=== PATIENT | female | born 1955 | race Caucasian/White ===

== ENCOUNTER 2016-12-24 08:45 | Outpatient (CLI) | payer OTHER ==
--- NOTE | 2016-12-24 12:24 | Ultrasound Report ---
THYROID ULTRASOUND: 12/24/2016 CLINICAL INDICATION: Left upper thyroid region enlargement, history of nodules. COMPARISON: 11/27/2011, 07/19/2008. TECHNIQUE: Real-time scanning was performed with ambulatory services representative static images obtained. FINDINGS: The right lobe measures 4.8 x 1.6 x 1.3 cm, and the left lobe measures 5.6 x 1.6 x 1.4 cm. The isthmus measures 2 mm. There has been no significant interval change in bilateral thyroid nodu les, with the largest nodule, in the posterior left lobe, now measuring 1.6 x 1.2 x 1.0 cm (previousl y 1.9 x 1.5 x 1.1 cm). No new dominant suspicious nodule is identified. Mildly enlarged level II ce rvical nodes are noted bilaterally. IMPRESSION: MILD CERVICAL LYMPHADENOPATHY. NO SIGNIFICANT INTERVAL CHANGE IN MULTINODULAR THYROID. NO NEW DOMINANT SUSPICIOUS NODULE IS IDENTIFIED. JOB #: [id number] EXT JOB #:[id number]
== END 2016-12-24 08:46 | disposition home or self-care (01) ==
LOC: DI 08:45
PROVIDERS: ATTEND Physician Assistant
DX: E04.2 Nontoxic multinodular goiter (principal)
CPT/HCPCS: 76536

== ENCOUNTER 2017-01-20 13:31 | Outpatient (CLI) | payer OTHER ==
[2017-01-20 18:09] LABS: BASOPHILS % (AUTO) 0.7 %; EOSINOPHILS # (AUTO) 0.2 10^3/uL (0.0-0.7); EOSINOPHILS % (AUTO) 2.6 %; HCT - HEMATOCRIT 43.7 % (37.0-47.0); HGB - HEMOGLOBIN 14.3 g/dL (12.0-16.0); LYMPHOCYTES # (AUTO) 2.5 10^3/uL (1.5-3.5); LYMPHOCYTES % (AUTO) 40.2 %; MEAN CORPUSCULAR HEMOGLOBIN 29.3 pg (27.0-31.0); MEAN CORPUSCULAR HGB CONC 32.8 g/dL (32.0-36.0); MEAN CORPUSCULAR VOLUME 89.4 fL (81.0-99.0); MEAN PLATELET VOLUME 9.7 fL (7.9-10.8); MONOCYTES # (AUTO) 0.6 10^3/uL (0.0-1.0); MONOCYTES % (AUTO) 9.2 %; NEUTROPHILS % (AUTO) 47.3 %; RED BLOOD COUNT 4.89 10^6/uL (4.20-5.40); RED CELL DISTRIBUTION WIDTH 13.8 % (12.0-15.0); UNCORRECTED WHITE BLOOD COUNT 6.3 x10^3/uL; WHITE BLOOD COUNT 6.3 x10^3/uL (4.8-10.8)
[2017-01-20 18:30] LABS: ALBUMIN/GLOBULIN RATIO 1.4 (1.0-2.2); BILIRUBIN,TOTAL 0.4 mg/dL (0.2-1.0); BUN - BLOOD UREA NITROGEN 14 mg/dL (6-20); CALCIUM 9.3 mg/dL (8.5-10.3); CARBON DIOXIDE - CO2 30 mmol/L (21-32); CHLORIDE 106 mmol/L (101-111); CREATININE 0.4 mg/dL (0.4-1.0); GFR - MDRD 162 (>89); GLUCOSE 103 mg/dL (70-100); POTASSIUM 3.4 mmol/L (3.5-5.0); SODIUM 143 mmol/L (135-145); TOTAL PROTEIN 6.6 g/dL (6.7-8.2)
[2017-01-20 18:54] LABS: BILIRUBIN,DIRECT < 0.1 mg/dL (0.1-0.5)
[2017-01-20 18:55] LABS: THYROID STIMULATING HORMONE 0.32 uIU/mL (0.34-5.60)
== END 2017-01-20 13:32 | disposition home or self-care (01) ==
LOC: LAB.F 13:31
PROVIDERS: ATTEND Physician Assistant
DX: E78.5 Hyperlipidemia, unspecified (principal); E04.1 Nontoxic single thyroid nodule; Z79.899 Other long term (current) drug therapy
CPT/HCPCS: 36415; 80053; 80076; 82248; 84436; 84443; 85025

== ENCOUNTER 2017-01-26 09:34 | Outpatient (CLI) | payer OTHER ==
[2017-01-26] MEDS ORDERED: BARIUM SULFATE 454 GM TUBE PO ONE (10:04)
--- NOTE | 2017-01-26 12:31 | XRAY Report ---
MODIFIED BARIUM SWALLOW: 01/26/2017 CLINICAL INDICATION: Dysphagia. FINDINGS: Various consistencies of barium were prepared and administered in conjunction with Speech Pathology. There was no evidence of penetration or aspiration with any administered consistency. Pl ease also refer to full report from Speech Pathology for further findings. IMPRESSION: NO EVIDENCE OF PENETRATION OR ASPIRATION. FLUOROSCOPY TIME: 46 seconds; 1 spot image obtained (cinefluoroscopy recorded). JOB #: [id number] EXT JOB #:[id number]
== END 2017-01-26 09:35 | disposition home or self-care (01) ==
LOC: DI 09:34
PROVIDERS: ATTEND Physician Assistant
DX: R13.10 Dysphagia, unspecified (principal)
CPT/HCPCS: 74230

== ENCOUNTER 2017-03-04 15:19 | Outpatient (CLI) | payer OTHER ==
[2017-03-04 17:59] LABS: BILIRUBIN,URINE NEGATIVE (NEGATIVE)
[2017-03-04 18:05] LABS: UR CULTURE IF IND NOT INDICATED; WBC,URINE 0-3 /HPF (0-5)
== END 2017-03-04 15:20 ==
LOC: LAB.R 15:19
PROVIDERS: ATTEND Physician Assistant Medical
DX: N39.0 Urinary tract infection, site not specified (principal)
CPT/HCPCS: 81001; 87086

== ENCOUNTER 2017-05-01 14:48 | Outpatient (CLI) | payer OTHER ==
[2017-05-01 18:34] LABS: ALBUMIN/GLOBULIN RATIO 1.6 (1.0-2.2); BILIRUBIN,TOTAL 0.5 mg/dL (0.2-1.0); CALCIUM 9.4 mg/dL (8.5-10.3); CREATININE 0.6 mg/dL (0.4-1.0); POTASSIUM 3.4 mmol/L (3.5-5.0)
== END 2017-05-01 14:49 | disposition home or self-care (01) ==
LOC: LAB.F 14:48
PROVIDERS: ATTEND Physician Assistant Medical
DX: N39.0 Urinary tract infection, site not specified (principal); R90.89 Other abnormal findings on diagnostic imaging of central nervous system; R41.3 Other amnesia
CPT/HCPCS: 36415; 80053

== ENCOUNTER 2017-05-06 08:48 | Outpatient (CLI) | payer OTHER ==
[~2017-05-06 08:48] MED LIST: GADOBUTROL 10 MMOL/10 ML VIAL ONE
[2017-05-06] MEDS ORDERED: GADOBUTROL 10 MMOL/10 ML VIAL IVP ONE (09:30)
--- NOTE | 2017-05-06 13:56 | MRI Report ---
EXAM: MRI BRAIN WITHOUT AND WITH CONTRAST EXAM DATE: 05/06/2017 09:41 AM. CLINICAL HISTORY: 61-year-old with worsening memory deficits COMPARISON: MR brain 04/12/2012. TECHNIQUE: Multiplanar, multisequence T1-weighted and fluid-sensitive MR sequences of the brain were performed. Sequences optimized for routine evaluation. Other: None. Without and with IV Contrast: 10 cc GADAVIST. FINDINGS: Brain Volume: Normal for age. Parenchyma/Dura: No acute hemorrhage, mass, or acute infarct. Moderate bilateral areas of T2/FLAIR si gnal hyperintensity seen that appear slightly progressed from 04/12/2012. 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 No abnormal postcontrast enhancement. Pituitary: The sella appears normal. Pituitary appears normal. No suprasellar mass or mass effect in the overlying optic structures. Ventricles/Cisterns: No abnormal extra axial fluid collection/mass seen. Ventricles and sulci are pro minent but appropriate for the extensive volume loss. Cisterns are patent. No abnormal postcontrast e nhancement. Sinuses: Minimal mucosal thickening in the ethmoid air cells. Small right maxillary mucosal retention cyst versus polyp. Mastoid air cells and middle ear cavities are clear. Orbits: Normal. Vasculature: Visualized major intracranial flow voids are maintained. Dural sinuses are patent. Bones: Calvarium appears normal. The visualized craniocervical junction appears normal. Other: None. IMPRESSION: 1. No acute infarct, intracranial hemorrhage, mass, hydrocephalus, or abnormal postcontrast enhanceme nt. 2. Moderate white matter changes including old chronic lacunar infarcts of the left cerebellum and le ft putamen that appear slightly progressed from 04/12/2012. Findings are most consistent with sequela of chronic small vessel ischemic disease. [facility] Referring Provider Line: [phone] SITE ID: [id number]
== END 2017-05-06 08:49 | disposition home or self-care (01) ==
LOC: DI 08:48
PROVIDERS: ATTEND Physician Assistant Medical
DX: R90.89 Other abnormal findings on diagnostic imaging of central nervous system (principal)
CPT/HCPCS: 70553; A9585

== ENCOUNTER 2017-06-12 17:41 | Outpatient (CLI) | payer OTHER ==
--- NOTE | 2017-06-13 14:22 | XRAY Report ---
EXAM: LEFT HIP AND PELVIS RADIOGRAPHY EXAM DATE: 06/12/2017 06:03 PM. HISTORY: HIP JOINT PAIN, LEFT. COMPARISONS: 07/14/2015. TECHNIQUE: 1 view of the pelvis and 1 view of the hip. FINDINGS: Bones: Old, healed proximal left femoral fracture is stable. Changes of previous right femoral roddin g are stable. Fusion hardware is seen in the lower lumbar spine. There is no evidence of acute fractu re. Joints: Mild bilateral hip osteoarthritis. Soft Tissues: Normal. No soft tissue swelling. IMPRESSION: Stable post traumatic changes. No evidence of acute fracture. Mild osteoarthritis. [facility] Referring Provider Line: [phone] SITE ID: [id number]
== END 2017-06-12 17:42 | disposition home or self-care (01) ==
LOC: DI 17:41
PROVIDERS: ATTEND Physician Assistant Medical
DX: M16.0 Bilateral primary osteoarthritis of hip (principal); Z98.1 Arthrodesis status

== ENCOUNTER 2017-07-11 12:58 | Outpatient (CLI) | payer OTHER ==
[~2017-07-11 12:58] MED LIST changes: -GADOBUTROL 10 MMOL/10 ML VIAL ONE; +GADOBUTROL 15 MMOL/15 ML VIAL ONE
[2017-07-11] MEDS ORDERED: GADOBUTROL 15 MMOL/15 ML VIAL IVP ONE (14:01)
--- NOTE | 2017-07-13 01:16 | MRI Report ---
EXAM: MRI SOFT TISSUE NECK WITHOUT AND WITH CONTRAST EXAM DATE: 07/11/2017 02:21 PM. CLINICAL HISTORY: C1 synovial cyst. COMPARISON: Cervical spine MRIs from 07/05/2013 and 04/12/2012. TECHNIQUE: Multiplanar, multisequence T1-weighted and fluid-sensitive MR sequences of the neck soft t issues were performed. Other: None. IV Contrast: Without and with 11 mL of Gadavist. FINDINGS: Skull Base: Visualized intracranial contents and orbits are unremarkable. The skull base is intact. Pharynx and Oral Cavity: The pharyngeal mucosa is unremarkable. The infratemporal fossa, parapharynge al spaces, and retropharyngeal space are unremarkable. The airway is patent. The base of the tongue is symmetric. No mass lesion. The floor of the mouth is symmetric and unremark able. Larynx: The larynx and supraglottic airway are patent without mass lesion. The vocal cords are symme tric. The visualized trachea is unremarkable. Parotid and Submandibular Glands: Symmetric and unremarkable. Lymph Nodes and Soft Tissues: A 9 mm enhancing nodule is noted adjacent to the posterior aspect of t he left thyroid lobe and lateral to the esophagus (image 9, series 1001), stable in size compared to the prior MRIs. No enlarged cervical, supraclavicular fossa, or visualized superior mediastinal lymph nodes. The previously demonstrated prevertebral synovial cyst to the right of midline at C1 has comp letely resolved. Vasculature: Patent. Bones: No abnormal bone marrow edema is seen in the cervical spine. Multilevel degenerative changes a re again demonstrated, most pronounced in the mid cervical spine. Other: The upper chest is unremarkable. IMPRESSION: 1. Interval resolution of the C1 synovial cyst compared to the prior cervical spine MRIs from 2011 an 2012. 2. No acute abnormality identified in the remaining soft tissues of the neck. [facility] Referring Provider Line: [phone] SITE ID: [id number]
== END 2017-07-11 12:59 | disposition home or self-care (01) ==
LOC: DI 12:58
PROVIDERS: ATTEND Psychiatry & Neurology Neurology
DX: R22.1 Localized swelling, mass and lump, neck (principal)
CPT/HCPCS: 70543; A9585

== ENCOUNTER 2017-08-08 14:33 | Outpatient (CLI) | payer OTHER | END 2017-08-08 14:34 | disposition home or self-care (01) | LOC: LAB 14:33 | PROVIDERS: ATTEND Surgery | DX: I10 Essential (primary) hypertension (principal); M54.9 Dorsalgia, unspecified; E78.5 Hyperlipidemia, unspecified; E66.01 Morbid (severe) obesity due to excess calories; G47.30 Sleep apnea, unspecified | CPT/HCPCS: 36415; 80053; 80061; 81599; 82306; 82607; 82728; 82746; 83036; 83540; 83721; 84425; 84443; 84466; 84590; 84630; 85025 ==

== ENCOUNTER 2017-08-11 08:00 | Outpatient (CLI) | payer OTHER ==
[2017-08-11 07:32] LABS: BASOPHILS % (AUTO) 0.5 %; EOSINOPHILS # (AUTO) 0.1 10^3/uL (0.0-0.7); EOSINOPHILS % (AUTO) 1.8 %; HGB - HEMOGLOBIN 13.6 g/dL (12.0-16.0); LYMPHOCYTES % (AUTO) 38.3 %; MEAN CORPUSCULAR HEMOGLOBIN 29.4 pg (27.0-31.0); MEAN CORPUSCULAR HGB CONC 32.8 g/dL (32.0-36.0); MEAN CORPUSCULAR VOLUME 89.6 fL (81.0-99.0); MEAN PLATELET VOLUME 8.7 fL (7.9-10.8); MONOCYTES # (AUTO) 0.5 10^3/uL (0.0-1.0); MONOCYTES % (AUTO) 9.2 %; NEUTROPHILS # (AUTO) 2.6 10^3/uL (1.5-6.6); NEUTROPHILS % (AUTO) 50.2 %; PLT - PLATELET COUNT 180 10^3/uL (130-450); RED BLOOD COUNT 4.63 10^6/uL (4.20-5.40); RED CELL DISTRIBUTION WIDTH 13.4 % (12.0-15.0); WHITE BLOOD COUNT 5.2 x10^3/uL (4.8-10.8)
[2017-08-11 07:52] LABS: % IRON SATURATION 28 % (20-50); ALBUMIN 3.8 g/dL (3.2-5.5); ALBUMIN/GLOBULIN RATIO 1.4 (1.0-2.2); ALKALINE PHOSPHATASE 57 IU/L (42-121); ALT ALANINE AMINOTRANSFERASE 24 IU/L (10-60); AST ASPARTATE AMINOTRANSFERASE 23 IU/L (10-42); BILIRUBIN,TOTAL 0.6 mg/dL (0.2-1.0); BUN - BLOOD UREA NITROGEN 11 mg/dL (6-20); CALCIUM 8.8 mg/dL (8.5-10.3); CARBON DIOXIDE - CO2 25 mmol/L (21-32); CHLORIDE 96 mmol/L (101-111); CHOL/HDL RATIO 4.9 (<4.4); CHOLESTEROL 254 mg/dL; CREATININE 0.6 mg/dL (0.4-1.0); GFR - MDRD 101 (>89); GLUCOSE 110 mg/dL (70-100); HDL CHOLESTEROL 52 mg/dL; IRON 91 ug/dL (28-170); LDL CHOLESTEROL,CALCULATED 178 mg/dL; LDL/HDL RATIO 3.4 (<4.4); SODIUM 132 mmol/L (135-145); TOTAL IRON BINDING CAPACITY 321 ug/dL (250-450); TOTAL PROTEIN 6.6 g/dL (6.7-8.2); TRANSFERRIN 229 mg/dL (192-382); VLDL CHOLESTEROL 24 mg/dL
[2017-08-11 07:54] LABS: HB2 TOTAL 14.6 g/dL; HEMOGLOBIN A1C 0.55 g/dL; HEMOGLOBIN A1C % 5.6 % (4.6-6.2)
[2017-08-11 08:02] LABS: THYROID STIMULATING HORMONE 0.67 uIU/mL (0.34-5.60)
[2017-08-11 08:09] LABS: FERRITIN 139.4 ng/mL (11.0-306.8)
[2017-08-14 14:41] LABS: VITAMIN A (RETINOL) 46 mcg/dL (38-98)
[2017-08-14 18:02] LABS: ZINC, PLASMA 62 mcg/dL (60-130)
== END 2017-08-11 08:01 | disposition home or self-care (01) ==
LOC: LAB 08:00
PROVIDERS: ATTEND Surgery
DX: I10 Essential (primary) hypertension (principal); M54.9 Dorsalgia, unspecified; E78.5 Hyperlipidemia, unspecified; E66.01 Morbid (severe) obesity due to excess calories; G47.30 Sleep apnea, unspecified
CPT/HCPCS: 36415; 80053; 80061; 81599; 82306; 82607; 82728; 82746; 83036; 83525; 83540; 83721; 84425; 84443; 84466; 84590; 84630; 84681; 85025

== ENCOUNTER 2017-11-05 08:48 | Outpatient (CLI) | payer OTHER ==
[2017-11-05 18:20] VITALS: BP 122/76
--- NOTE | 2017-11-06 09:56 | CARDIAC PROCEDURE NOTE ---
DATE OF SERVICE: 11/05/2017 Physician: NIKITA Cason PRIMARY CARE PHYSICIAN: Enedina Andre PA-C. PROCEDURE: Stress echocardiogram. PROCEDURE SYMPTOMS 1. Dyspnea on exertion. 2. Abnormal ECG. CARDIAC RISK FACTORS Include: 1. Age. 2. Hypertension. PREVIOUS CARDIAC PROCEDURES: None. CLINICAL HISTORY: A 62-year-old sedentary female without known coronary artery disease. She is preop bariatric surgery. INITIAL RESTING VITAL SIGNS: BP 124/72, heart rate 76, height 60 inches, weight 225 pounds, BMI 43.9. PROCEDURE AND FINDINGS: The patient's identity and date were verified, consent signed. After resting echocardiogram images were obtained, the patient performed treadmill exercise using a Sharif protocol, completing 5 minutes 46 seconds and an estimated workload of 7.05 metabolic equivalents. Maximal blood pressure was 172/80 mmHg with a heart rate of 160 beats per minute or 101% of maximum predicted heart rate for age. The blood pressure response to exercise was normal. The patient stopped due to achieving 101% and she was tiring. The resting ECG demonstrated normal sinus rhythm with low voltage in the chest leads. There was less than 0.5 ST-segment depression and no T-wave abnormalities. She had occasional PVCs at rest, during exercise, and in recovery. PVCs were of 2 morphologies and included 1 couplet and a short bigeminal rhythm. The summary report from the treadmill records 90 PVCs through the test. Our nurse will check through to see if that is accurate. FINAL IMPRESSIONS 1. Quality of tracings is good. 2. Achieved predicted time of 5 minutes, 30 seconds for sedentary female. 3. No ECG signs of ischemia, testing complete, awaiting Echocardiographic report. 4. Negative stress test clinically for angina. 5. Multiple PVC ectopy. cc: Francheska Callahan MD TD: 11/05/2017 20:09 MTDReid
--- NOTE | 2017-11-12 19:54 | CARDIAC PROCEDURE NOTE ---
DATE OF SERVICE: 11/05/2017 Physician: Natalya Diamond, [facility] ADDENDUM: Review of stress test revealed probability of around 90 PVCs total, most of which occurred prior to the test and in recovery. She had only about 6 PVCs during her 6+ minutes of exercise. TD: 11/12/2017 19:53
== END 2017-11-05 08:49 | disposition home or self-care (01) ==
LOC: DI 08:48
PROVIDERS: ATTEND Physician Assistant Medical
DX: R94.31 Abnormal electrocardiogram [ECG] [EKG] (principal); I10 Essential (primary) hypertension; R06.00 Dyspnea, unspecified; I49.3 Ventricular premature depolarization
CPT/HCPCS: 93351

== ENCOUNTER 2017-11-14 13:30 | Outpatient (CLI) | payer OTHER | END 2017-11-14 13:31 | disposition home or self-care (01) | LOC: RT 13:30 | PROVIDERS: ATTEND Physician Assistant Medical | DX: R06.2 Wheezing (principal) | CPT/HCPCS: 94010; 94729 ==

== ENCOUNTER 2017-11-30 10:25 | Outpatient (CLI) | payer OTHER | END 2017-11-30 10:26 | disposition home or self-care (01) | LOC: SC 10:25 | PROVIDERS: ATTEND Internal Medicine Pulmonary Disease | DX: G47.33 Obstructive sleep apnea (adult) (pediatric) (principal) | CPT/HCPCS: 99203; 99212 ==

== ENCOUNTER 2017-12-14 17:27 | Outpatient (CLI) | payer OTHER ==
--- NOTE | 2017-12-15 10:56 | XRAY Report ---
TWO VIEW RIGHT KNEE: 12/14/2017 CLINICAL INDICATION: Fall, pain. FINDINGS: Frontal and lateral views of the right knee demonstrate a right knee medial hemiarthroplasty in place. Mild osteoarthritis is seen. No acute fracture or dislocation is identified. No effusion is present. Old IM phyllis track is incidentally noted. IMPRESSION: RIGHT KNEE MEDIAL HEMIARTHROPLASTY. MILD OSTEOARTHRITIS. NO EVIDENCE OF ACUTE FRACTURE. TD: 12/15/2017 10:33
== END 2017-12-14 17:28 | disposition home or self-care (01) ==
LOC: DI 17:27
PROVIDERS: ATTEND Internal Medicine
DX: M17.11 Unilateral primary osteoarthritis, right knee (principal); Z98.1 Arthrodesis status

== ENCOUNTER 2018-02-21 12:16 | Outpatient (CLI) | payer OTHER ==
[2018-02-21 12:36] LABS: BASOPHILS % (AUTO) 0.7 %; EOSINOPHILS # (AUTO) 0.2 10^3/uL (0.0-0.7); EOSINOPHILS % (AUTO) 2.5 %; HGB - HEMOGLOBIN 14.8 g/dL (12.0-16.0); LYMPHOCYTES # (AUTO) 2.7 10^3/uL (1.5-3.5); LYMPHOCYTES % (AUTO) 39.8 %; MEAN CORPUSCULAR HEMOGLOBIN 30.3 pg (27.0-31.0); MEAN CORPUSCULAR HGB CONC 33.3 g/dL (32.0-36.0); MEAN CORPUSCULAR VOLUME 91.1 fL (81.0-99.0); MEAN PLATELET VOLUME 9.2 fL (7.9-10.8); MONOCYTES # (AUTO) 0.6 10^3/uL (0.0-1.0); MONOCYTES % (AUTO) 9.2 %; NEUTROPHILS # (AUTO) 3.2 10^3/uL (1.5-6.6); NEUTROPHILS % (AUTO) 47.8 %; PLT - PLATELET COUNT 192 10^3/uL (130-450); RED BLOOD COUNT 4.87 10^6/uL (4.20-5.40); RED CELL DISTRIBUTION WIDTH 12.9 % (12.0-15.0); WHITE BLOOD COUNT 6.8 x10^3/uL (4.8-10.8)
[2018-02-21 12:44] LABS: ALBUMIN 3.9 g/dL (3.2-5.5); ALBUMIN/GLOBULIN RATIO 1.2 (1.0-2.2); CALCIUM 9.2 mg/dL (8.5-10.3); CREATININE 0.5 mg/dL (0.4-1.0); TOTAL PROTEIN 7.1 g/dL (6.7-8.2)
== END 2018-02-21 12:17 | disposition home or self-care (01) ==
LOC: LAB 12:16
PROVIDERS: ATTEND Physician Assistant Medical
DX: M79.1 Myalgia (principal); M25.50 Pain in unspecified joint; I10 Essential (primary) hypertension
CPT/HCPCS: 36415; 80053; 83735; 85025

== ENCOUNTER 2018-02-24 14:22 | Outpatient (CLI) | payer OTHER | END 2018-02-24 14:23 | disposition home or self-care (01) | LOC: SC 14:22 | PROVIDERS: ATTEND Nurse Practitioner Family | DX: G47.33 Obstructive sleep apnea (adult) (pediatric) (principal) | CPT/HCPCS: 99212; 99214 ==

== ENCOUNTER 2018-04-14 09:33 | Outpatient (CLI) | payer OTHER ==
[2018-04-14 11:17] LABS: HGB - HEMOGLOBIN 15.1 g/dL (12.0-16.0); MEAN CORPUSCULAR HEMOGLOBIN 30.3 pg (27.0-31.0); MEAN CORPUSCULAR HGB CONC 34.1 g/dL (32.0-36.0); MEAN PLATELET VOLUME 9.3 fL (7.9-10.8); RED BLOOD COUNT 4.99 10^6/uL (4.20-5.40); RED CELL DISTRIBUTION WIDTH 12.8 % (12.0-15.0)
[2018-04-14 11:26] LABS: ALBUMIN 4.1 g/dL (3.2-5.5); ALBUMIN/GLOBULIN RATIO 1.3 (1.0-2.2); BILIRUBIN,TOTAL 0.9 mg/dL (0.2-1.0); CALCIUM 9.6 mg/dL (8.5-10.3); CREATININE 0.6 mg/dL (0.4-1.0); TOTAL PROTEIN 7.3 g/dL (6.7-8.2)
== END 2018-04-14 09:34 | disposition home or self-care (01) ==
LOC: LAB.F 09:33
PROVIDERS: ATTEND Surgery
DX: G47.30 Sleep apnea, unspecified (principal); I10 Essential (primary) hypertension; E78.5 Hyperlipidemia, unspecified
CPT/HCPCS: 36415; 80053; 85027

== ENCOUNTER 2018-05-19 08:49 | Outpatient (CLI) | payer OTHER | END 2018-05-19 08:50 | disposition home or self-care (01) | LOC: SC 08:49 | PROVIDERS: ATTEND Nurse Practitioner Family | DX: G47.33 Obstructive sleep apnea (adult) (pediatric) (principal) | CPT/HCPCS: 99212; 99214 ==

== ENCOUNTER 2018-06-03 08:18 | Outpatient (CLI) | payer OTHER ==
[2018-06-03 10:34] LABS: BASOPHILS % (AUTO) 0.4 %; EOSINOPHILS # (AUTO) 0.1 10^3/uL (0.0-0.7); EOSINOPHILS % (AUTO) 1.1 %; HGB - HEMOGLOBIN 14.9 g/dL (12.0-16.0); LYMPHOCYTES % (AUTO) 36.5 %; MEAN CORPUSCULAR HEMOGLOBIN 30.1 pg (27.0-31.0); MEAN CORPUSCULAR VOLUME 88.4 fL (81.0-99.0); MEAN PLATELET VOLUME 9.6 fL (7.9-10.8); MONOCYTES # (AUTO) 0.5 10^3/uL (0.0-1.0); MONOCYTES % (AUTO) 8.9 %; NEUTROPHILS # (AUTO) 2.9 10^3/uL (1.5-6.6); NEUTROPHILS % (AUTO) 53.1 %; PLT - PLATELET COUNT 210 10^3/uL (130-450); RED BLOOD COUNT 4.94 10^6/uL (4.20-5.40); WHITE BLOOD COUNT 5.5 x10^3/uL (4.8-10.8)
[2018-06-03 10:55] LABS: ALBUMIN 4.3 g/dL (3.2-5.5); ALBUMIN/GLOBULIN RATIO 1.5 (1.0-2.2); BILIRUBIN,TOTAL 0.8 mg/dL (0.2-1.0); CALCIUM 9.3 mg/dL (8.5-10.3); CREATININE 0.5 mg/dL (0.4-1.0); TOTAL PROTEIN 7.1 g/dL (6.7-8.2)
== END 2018-06-03 08:19 | disposition home or self-care (01) ==
LOC: LAB.F 08:18
PROVIDERS: ATTEND Surgery
DX: K22.70 Barrett's esophagus without dysplasia (principal)
CPT/HCPCS: 36415; 80053; 85025

== ENCOUNTER 2018-06-22 08:50 | Outpatient (CLI) | payer OTHER | END 2018-06-22 08:51 | disposition home or self-care (01) | LOC: SC 08:50 | PROVIDERS: ATTEND Nurse Practitioner Family | DX: G47.33 Obstructive sleep apnea (adult) (pediatric) (principal) | CPT/HCPCS: 99212; 99214 ==

== ENCOUNTER 2018-07-26 17:20 | Outpatient (CLI) | payer OTHER | END 2018-07-26 17:21 | disposition critical access hospital (66) | LOC: EMS 17:20 | PROVIDERS: ATTEND Surgery | DX: R07.9 Chest pain, unspecified (principal) | CPT/HCPCS: A0425; A0427 ==

== ENCOUNTER 2018-07-26 17:46 | Emergency (ER) | payer OTHER ==
[2018-07-26] MEDS ORDERED: IOVERSOL 320 100 ML VIAL IVP ONE (17:47)
[2018-07-26 18:29] LABS: BASOPHILS % (AUTO) 0.5 %; EOSINOPHILS % (AUTO) 0.6 %; LYMPHOCYTES # (AUTO) 1.9 10^3/uL (1.5-3.5); LYMPHOCYTES % (AUTO) 35.3 %; MEAN CORPUSCULAR HEMOGLOBIN 29.9 pg (27.0-31.0); MEAN CORPUSCULAR HGB CONC 33.4 g/dL (32.0-36.0); MEAN CORPUSCULAR VOLUME 89.5 fL (81.0-99.0); MEAN PLATELET VOLUME 9.1 fL (7.9-10.8); MONOCYTES # (AUTO) 0.4 10^3/uL (0.0-1.0); MONOCYTES % (AUTO) 8.3 %; NEUTROPHILS % (AUTO) 55.3 %; PLT - PLATELET COUNT 177 10^3/uL (130-450); RED BLOOD COUNT 5.36 10^6/uL (4.20-5.40); RED CELL DISTRIBUTION WIDTH 13.2 % (12.0-15.0); WHITE BLOOD COUNT 5.4 x10^3/uL (4.8-10.8)
[2018-07-26 18:42] LABS: ALBUMIN 4.4 g/dL (3.2-5.5); ALBUMIN/GLOBULIN RATIO 1.6 (1.0-2.2); BILIRUBIN,TOTAL 0.8 mg/dL (0.2-1.0); CALCIUM 9.5 mg/dL (8.5-10.3); CREATININE 0.6 mg/dL (0.4-1.0); TOTAL PROTEIN 7.2 g/dL (6.7-8.2)
[2018-07-26] MEDS ORDERED: METOPROLOL 5 MG/5 ML VIAL IVP STA (18:43)
[2018-07-26] MEDS ORDERED: POTASSIUM BICARB 25 MEQ TABLET PO STA (18:44)
--- NOTE | 2018-07-26 18:45 | XRAY Report ---
Reason: chest pain Procedure Date: 07/26/2018 Accession Number: [id number] / [id number] Procedure: XR - Chest 1 View X-Ray CPT Code: 33698 FULL RESULT: EXAM: CHEST RADIOGRAPHY. EXAM DATE: 07/26/2018 06:21 PM. CLINICAL HISTORY: Chest pain. COMPARISON: Chest 2 view PA/lateral 03/27/2014 9:11 AM. TECHNIQUE: 1 view. FINDINGS: Lungs/Pleura: No focal opacities evident. No pleural effusion. No pneumothorax. Mediastinum: Within exam limitations, the cardiomediastinal contour is normal. Other: None. IMPRESSION: Normal single view chest. [facility]
--- NOTE | 2018-07-26 18:46 | ED Physician Documentation ---
PD HPI CHEST PAIN - Stated complaint Stated Complaint: CP - Chief complaint Chief Complaint: Cardiac - History obtained from History obtained from: Patient, Family, EMS - History of Present Illness Timing - onset: Today (62-year-old woman had a gastric sleeve earlier this month. She was feeling nauseous today and that is new and then around 415 developed sharp anterior chest pain radiating to the neck without back pain and a brief headache. She was in pain for about 15 minutes and it resolved with the administration of nitroglycerin. Of note she had a negative stress echocardiogram in October of this year. She has no history of heart problems. She denies pedal edema or calf pain.) Review of Systems Constitutional: reports: Sweats. denies: Fever, Chills Nose: denies: Rhinorrhea / runny nose, Congestion Throat: denies: Sore throat Cardiac: reports: Chest pain / pressure. 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 HEENT: Tonsil/Adenoidectomy Derm: Skin grafts - Present Medications Home Medications: Ambulatory Orders Medication Instructions Recorded Confirmed Cholecalciferol (Vitamin D3) 2,000 units PO DAILY 10/17/13 01/08/15 [Vitamin D] Cyanocobalamin (Vitamin B-12) 2,500 mcg PO DAILY 10/17/13 01/08/15 [Vitamin B-12] Folic Acid 400 mcg PO DAILY 10/17/13 01/08/15 Krill/Om3/Dha/Epa/Om6/Lip/Astx 1 cap PO DAILY 10/17/13 01/08/15 [Krill Oil 1,000 mg Softgel] Kangenukone 1 tab PO DAILY 01/12/14 01/08/15 Lactobacillus Acidophilus 1 cap PO DAILY 01/12/14 01/08/15 [Probiotic] Magnesium 400 mg PO DAILY 01/12/14 01/08/15 PARoxetine [Paxil] 5 mg PO DAILY 01/12/14 01/08/15 Vitamin E 400 units PO DAILY 01/12/14 01/08/15 Biotin [Jayesh Biotin] 5,000 mcg ORAL DAILY 01/08/15 01/08/15 Vit E/Vit C/Magnesium/Zinc [Ecee 1 tab ORAL DAILY 01/08/15 01/08/15 Plus Tablet] Metoprolol Succinate 25 mg PO DAILY #30 tab.er.24h 07/26/18 Potassium Bicarbonate 25 meq PO DAILY #15 tablet 07/26/18 [K-Effervescent] - Allergies Allergies/Adverse Reactions: Allergies Allergy/AdvReac Type Severity Reaction Status Date / Time vancomycin Allergy Severe Jimenez-Johnsons Verified 03/27/14 08:29 Syndrome - Social History Does the pt smoke?: No Smoking Status: Never smoker Does the pt drink ETOH?: Yes Does the pt have substance abuse?: No - POLST Patient has POLST: No PD ED PE NORMAL - Vitals Vital signs reviewed: Yes - General General: Alert and oriented X 3, No acute distress - HEENT HEENT: PERRL, EOMI - Neck Neck: Supple, no meningeal sign, No bony TTP - Cardiac Cardiac: RRR, No murmur - Respiratory Respiratory: No respiratory distress, Clear bilaterally - Abdomen Abdomen: Normal bowel sounds, Soft, Non tender - Back Back: No CVA TTP, No spinal TTP - Derm Derm: Normal color, Warm and dry - Extremities Extremities: Other (There is asymmetry with the left calf being larger than the right but that is due to a remote trauma with hardware in place.) - Neuro Neuro: Alert and oriented X 3, Normal speech - Psych Psych: Normal mood, Normal affect Results - Vitals Vitals: Vital Signs - 24 hr 07/26/18 07/26/18 07/26/18 17:57 18:16 18:30 Temperature 35.8 C L Heart Rate 86 77 92 Respiratory 14 19 20 Rate Blood Pressure 175/11 H 151/86 H 154/89 H O2 Saturation 100 97 97 07/26/18 07/26/18 07/26/18 18:55 19:43 21:04 Temperature Heart Rate 78 73 72 Respiratory 15 16 22 Rate Blood Pressure 142/99 H 142/120 H 110/98 H O2 Saturation 95 96 93 Oxygen O2 Source Room air - EKG (time done) 1755 Rate: Rate (enter#) (93) Rhythm: NSR (With frequent PVCs) [place]: Normal Intervals: Normal [place] QRS: LVH Ischemia: Normal ST segments Computer interpretation: Agree with computer - Labs Labs: Laboratory Tests 07/26/18 07/26/18 07/26/18 18:23 18:23 18:23 WBC 5.4 RBC 5.36 Hgb 16.0 Hct 48.0 H MCV 89.5 MCH 29.9 MCHC 33.4 RDW 13.2 Plt Count 177 MPV 9.1 Neut # (Auto) 3.0 Lymph # (Auto) 1.9 [place] # (Auto) 0.4 Eos # (Auto) 0.0 Baso # (Auto) 0.0 Absolute Nucleated RBC 0.00 Nucleated RBC % 0.1 Sodium 136 Potassium 2.9 L Chloride 98 L Carbon Dioxide 29 Anion Gap 9.0 BUN 11 Creatinine 0.6 Estimated GFR (MDRD) 101 Glucose 115 H Calcium 9.5 Total Bilirubin 0.8 AST 24 ALT 30 Alkaline Phosphatase 78 Troponin I < 0.04 Total Protein 7.2 Albumin 4.4 Globulin 2.8 Albumin/Globulin Ratio 1.6 Lipase 43 07/26/18 20:07 WBC RBC Hgb Hct MCV MCH MCHC RDW Plt Count MPV Neut # (Auto) Lymph # (Auto) [place] # (Auto) Eos # (Auto) Baso # (Auto) Absolute Nucleated RBC Nucleated RBC % Sodium Potassium Chloride Carbon Dioxide Anion Gap BUN Creatinine Estimated GFR (MDRD) Glucose Calcium Total Bilirubin AST ALT Alkaline Phosphatase Troponin I < 0.04 Total Protein Albumin Globulin Albumin/Globulin Ratio Lipase - Rads (name of study) 1v chest Radiology: EMP read contemporaneously (NAD) PD MEDICAL DECISION MAKING - ED course ED course: 62-year-old woman with brief but concerning chest pain episode prior to arrival. Pain-free on arrival but with a lot of PVCs but otherwise not acutely ischemic EKG. Serial troponins were done in the department without any bump. PVCs resolved after a small dose of Lopressor and potassium supplementation orally. Departure - Departure Disposition: 01 Home, Self Care Clinical Impression: PVCs (premature ventricular contractions), Hypokalemia Chest pain Qualifiers: Chest pain type: unspecified Qualified Code(s): R07.9 - Chest pain, unspecified Condition: Good Record reviewed to determine appropriate education?: Yes Instructions: Angina Dc Prescriptions: Metoprolol Succinate 25 mg PO DAILY #30 tab.er.24h Potassium Bicarbonate [K-Effervescent] 25 meq PO DAILY #15 tablet Comments: Follow-up with LITZY Andre in a few days. Recommend rechecking potassium and consideration for repeat stress test. Return by ambulance for repeat chest pain episode.
--- NOTE | 2018-07-26 19:52 | CT Report ---
Reason: Post op chest pain Procedure Date: 07/26/2018 Accession Number: [id number] / [id number] Procedure: CT - Chest Angio (PE) CPT Code: FULL RESULT: EXAM: CT ANGIOGRAM CHEST EXAM DATE: 07/26/2018 07:34 PM. CLINICAL HISTORY: Post op chest pain. COMPARISON: None. TECHNIQUE: Routine helical imaging was performed through the chest in the pulmonary arterial phase. IV Contrast: Optiray 320 80mL. Reconstructions: Coronal 3-D MIP reconstructions.Sagittal and coronal. In accordance with CT protocol optimization, one or more of the following dose reduction techniques were utilized for this exam: automated exposure control, adjustment of mA and/or KV based on patient size, or use of iterative reconstructive technique. FINDINGS: Pulmonary Arteries: Diagnostic quality: Adequate through the segmental arteries. No evidence for acute or chronic pulmonary emboli. RV/LV is within normal limits. There is no interventricular septal bowing. There is no reflux of contrast material in the IVC. Lungs/Pleura: No consolidation, nodules, or edema. No effusions or pneumothorax. Mediastinum: Normal. No cardiac enlargement or adenopathy. Thoracic Aorta: Unremarkable. Upper Abdomen: There is a 2.8 cm right renal parapelvic cyst. A 1.5 cm cyst is noted at the hepatic dome. Status post gastric sleeve procedure. Other: None. IMPRESSION: Normal pulmonary CT angiogram. No pulmonary emboli. [facility]
[2018-07-26 21:04] VITALS: BP 110/98
[2018-07-27] MEDS ORDERED: IOVERSOL 320 100 ML VIAL IVP ONE (01:22)
== END 2018-07-26 21:21 | disposition home or self-care (01) ==
LOC: EDUNIT# → ED 17:46
DX: I49.3 Ventricular premature depolarization (principal); R07.9 Chest pain, unspecified; E87.6 Hypokalemia; I10 Essential (primary) hypertension; Z98.84 Bariatric surgery status
CPT/HCPCS: 36415; 71045; 71275; 80053; 83690; 84484; 85025; 93005; 96374; 99284; A9270; Q9967

== ENCOUNTER 2018-08-02 07:49 | Outpatient (CLI) | payer BC ==
[2018-08-02 13:18] LABS: ALBUMIN/GLOBULIN RATIO 1.3 (1.0-2.2); BILIRUBIN,TOTAL 0.7 mg/dL (0.2-1.0); CALCIUM 9.6 mg/dL (8.5-10.3); CREATININE 0.6 mg/dL (0.4-1.0)
== END 2018-08-02 07:50 | disposition home or self-care (01) ==
LOC: LAB.F 07:49
PROVIDERS: ATTEND Physician Assistant Medical
DX: E87.6 Hypokalemia (principal)
CPT/HCPCS: 36415; 80053

== ENCOUNTER 2018-08-11 08:22 | Outpatient (CLI) | payer BC, OTHER ==
[2018-08-11 10:53] LABS: ALBUMIN 3.8 g/dL (3.2-5.5); ALBUMIN/GLOBULIN RATIO 1.4 (1.0-2.2); BILIRUBIN,TOTAL 0.7 mg/dL (0.2-1.0); CALCIUM 9.2 mg/dL (8.5-10.3); CREATININE 0.5 mg/dL (0.4-1.0); TOTAL PROTEIN 6.5 g/dL (6.7-8.2)
[2018-08-11 11:12] LABS: ALT ALANINE AMINOTRANSFERASE 27 IU/L (10-60); AST ASPARTATE AMINOTRANSFERASE 24 IU/L (10-42)
== END 2018-08-11 08:23 | disposition home or self-care (01) ==
LOC: LAB.F 08:22
PROVIDERS: ATTEND Physician Assistant Medical
DX: E87.6 Hypokalemia (principal); B35.1 Tinea unguium
CPT/HCPCS: 36415; 80053; 84450; 84460

== ENCOUNTER 2018-09-27 11:07 | Outpatient (CLI) | payer BC ==
[2018-09-27 18:36] LABS: THYROID STIMULATING HORMONE 0.55 uIU/mL (0.34-5.60)
[2018-09-27 18:43] LABS: FERRITIN 102.1 ng/mL (11.0-306.8)
[2018-09-27 18:47] LABS: FOLATE 19.94 ng/mL (5.90 - >24.8)
[2018-09-27 19:37] LABS: CHOL/HDL RATIO 3.5 (<4.4); CHOLESTEROL 216 mg/dL; HDL CHOLESTEROL 62 mg/dL; LDL CHOLESTEROL,CALCULATED 138 mg/dL; LDL/HDL RATIO 2.2 (<4.4); MAGNESIUM 2.1 mg/dL (1.7-2.8); VLDL CHOLESTEROL 16 mg/dL
[2018-09-27 19:48] LABS: % IRON SATURATION 27 % (20-50); ALBUMIN 4.1 g/dL (3.2-5.5); ALBUMIN/GLOBULIN RATIO 1.5 (1.0-2.2); ALKALINE PHOSPHATASE 88 IU/L (42-121); ALT ALANINE AMINOTRANSFERASE 20 IU/L (10-60); AST ASPARTATE AMINOTRANSFERASE 21 IU/L (10-42); BILIRUBIN,TOTAL 0.7 mg/dL (0.2-1.0); BUN - BLOOD UREA NITROGEN 11 mg/dL (6-20); CREATININE 0.5 mg/dL (0.4-1.0); GFR - MDRD 124 (>89); IRON 86 ug/dL (28-170); TOTAL IRON BINDING CAPACITY 316 ug/dL (250-450); TOTAL PROTEIN 6.9 g/dL (6.7-8.2); TRANSFERRIN 226 mg/dL (192-382)
[2018-09-27 20:06] LABS: CALCIUM 9.3 mg/dL (8.5-10.3); CARBON DIOXIDE - CO2 28 mmol/L (21-32); CHLORIDE 103 mmol/L (101-111); GLUCOSE 89 mg/dL (70-100); SODIUM 140 mmol/L (135-145)
[2018-09-27 20:20] LABS: BASOPHILS % (AUTO) 0.5 %; EOSINOPHILS # (AUTO) 0.1 10^3/uL (0.0-0.7); EOSINOPHILS % (AUTO) 1.2 %; HGB - HEMOGLOBIN 14.5 g/dL (12.0-16.0); LYMPHOCYTES # (AUTO) 2.3 10^3/uL (1.5-3.5); MEAN CORPUSCULAR HEMOGLOBIN 29.5 pg (27.0-31.0); MEAN CORPUSCULAR HGB CONC 32.8 g/dL (32.0-36.0); MEAN PLATELET VOLUME 10.4 fL (7.9-10.8); MONOCYTES # (AUTO) 0.4 10^3/uL (0.0-1.0); MONOCYTES % (AUTO) 8.4 %; NEUTROPHILS # (AUTO) 2.2 10^3/uL (1.5-6.6); NEUTROPHILS % (AUTO) 43.9 %; PLT - PLATELET COUNT 177 10^3/uL (130-450); RED BLOOD COUNT 4.91 10^6/uL (4.20-5.40); RED CELL DISTRIBUTION WIDTH 14.2 % (12.0-15.0); WHITE BLOOD COUNT 4.9 x10^3/uL (4.8-10.8)
[2018-09-27 20:38] LABS: CRP - C-REACTIVE PROTEIN < 1.0 mg/dL (0-1.0)
[2018-09-27 22:08] LABS: HB2 TOTAL 16.1 g/dL; HEMOGLOBIN A1C 0.55 g/dL; HEMOGLOBIN A1C % 5.3 % (4.6-6.2)
[2018-10-01 20:28] LABS: ZINC, PLASMA 65 mcg/dL (60-130)
== END 2018-09-27 11:08 | disposition home or self-care (01) ==
LOC: LAB.F 11:07
PROVIDERS: ATTEND Internal Medicine Cardiovascular Disease
DX: M54.9 Dorsalgia, unspecified (principal); I10 Essential (primary) hypertension; E78.5 Hyperlipidemia, unspecified; E87.6 Hypokalemia
CPT/HCPCS: 36415; 80053; 80061; 81599; 82306; 82607; 82728; 82746; 83036; 83540; 83721; 83735; 84425; 84443; 84466; 84590; 84630; 84681; 85025; 86140

== ENCOUNTER 2018-11-12 11:41 | Outpatient (CLI) | payer BC ==
[2018-11-12 17:14] LABS: ALT ALANINE AMINOTRANSFERASE 18 IU/L (10-60); AST ASPARTATE AMINOTRANSFERASE 20 IU/L (10-42)
== END 2018-11-12 11:42 | disposition home or self-care (01) ==
LOC: LAB.F 11:41
PROVIDERS: ATTEND Physician Assistant Medical
DX: B35.1 Tinea unguium (principal); Z79.899 Other long term (current) drug therapy
CPT/HCPCS: 36415; 84450; 84460

== ENCOUNTER 2019-01-18 11:31 | Emergency (ER) | payer OTHER, BC ==
[2019-01-18] MEDS ORDERED: SODIUM CHLORIDE 0.9% 1,000 ML IV ONE ×2 (11:39→13:46)
[2019-01-18] MEDS ORDERED: POTASSIUM CHLOR 10 MEQ/100 ML 10 MEQ/100 ML BAG IV ONE (11:39)
[2019-01-18] MEDS ORDERED: diphenhydrAMINE INJ 50 MG/ML VIAL IVP STA (11:40)
[2019-01-18] MEDS ORDERED: ASPIRIN CHEW 81 MG TABLET PO STA (11:40)
[2019-01-18] MEDS ORDERED: DEXAMETHASONE 10 MG/ML VIAL IVP STA (11:40)
--- NOTE | 2019-01-18 11:41 | ED Physician Documentation ---
PD HPI CHEST PAIN - Stated complaint Stated Complaint: CHEST PAIN - History obtained from History obtained from: Patient - History of Present Illness Timing - onset: How many hours ago (1-2), Today Timing - onset during: Light activity Timing - duration: Hours (She received the third in the series of hepatitis B vaccines this morning at [email or web address] She states a little bit after that s he started feeling a little nausea. About an hour or so later when she was eating lunch she started with some chest pressure and a feeling of shortness of breath. She denied any itching or feeling of swelling. She subsequently developed increasing feeling of pressure in her chest and was feeling lightheaded. She came here to the ER for evaluation. 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 No: Sharp, Tearing Location: Substernal Radiation: No: Neck, Back Improved by: No: Rest Worsened by: Exertion (felt worse with walking). No: Inspiration Associated symptoms: Shortness of air, Nausea, Feeling faint / dizzy, General Weakness. No: Palpitations, Cough Similar symptoms before: No diagnosis (She did not have an exact same type of symptoms but did have an episode of some chest discomfort associated with some shortness of breath several months ago and was seen by cardiology after your visit. At that visit she was noticed to have palpitations and this improved with some potassium supplementation and fluids. And follow-up with the cardiology she states she had a echocardiogram and nuclear stress test in September of this year which were both normal. She has not had any exertional related symptoms over the past.) Recently seen: Not recently seen Review of Systems Constitutional: denies: Fever, Chills, Myalgias Nose: denies: Rhinorrhea / runny nose, Congestion Throat: denies: Sore throat Cardiac: reports: Chest pain / pressure. denies: Palpitations, Pedal edema, Calf pain Respiratory: reports: Dyspnea. denies: Cough, Wheezing GI: reports: Nausea. denies: Abdominal Pain, Vomiting Skin: denies: Rash, Lesions Musculoskeletal: denies: Neck pain, Back pain Neurologic: reports: Generalized weakness, Near syncope. 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 HEENT: Tonsil/Adenoidectomy Derm: Skin grafts - Present Medications Home Medications: Ambulatory Orders Medication Instructions Recorded Confirmed Cholecalciferol (Vitamin D3) 2,000 units PO DAILY 10/17/13 01/08/15 [Vitamin D] Cyanocobalamin (Vitamin B-12) 2,500 mcg PO DAILY 10/17/13 01/08/15 [Vitamin B-12] Folic Acid 400 mcg PO DAILY 10/17/13 01/08/15 Kangenukone 1 tab PO DAILY 01/12/14 01/08/15 Lactobacillus Acidophilus 1 cap PO DAILY 01/12/14 01/08/15 [Probiotic] Magnesium 400 mg PO DAILY 01/12/14 01/08/15 PARoxetine [Paxil] 5 mg PO DAILY 01/12/14 01/08/15 - Allergies Allergies/Adverse Reactions: Allergies Allergy/AdvReac Type Severity Reaction Status Date / Time vancomycin Allergy Severe Jimenez-Johnsons Verified 01/18/19 11:43 Syndrome - Social History Does the pt smoke?: No Smoking Status: Never smoker Does the pt drink ETOH?: Yes Does the pt have substance abuse?: No - POLST Patient has POLST: No PD ED PE NORMAL - Vitals Vital signs reviewed: Yes - General General: Alert and oriented X 3, No acute distress, Well developed/nourished - HEENT HEENT: Pharynx benign (no edema) - Neck Neck: Supple, no meningeal sign, No adenopathy - Cardiac Cardiac: RRR, No murmur - Respiratory Respiratory: Clear bilaterally - Abdomen Abdomen: Soft, Non tender - Back Back: No CVA TTP - Derm Derm: No: Normal color (pale and mild diaphoresis) - Extremities Extremities: No tenderness to palpate, Normal ROM s pain, No edema, No calf tenderness / cord - Neuro Neuro: Alert and oriented X 3, No motor deficit, Normal speech Results - Vitals Vitals: Vital Signs - 24 hr 01/18/19 01/18/19 01/18/19 11:41 13:12 14:32 Heart Rate 72 72 71 Respiratory 19 14 15 Rate Blood Pressure 113/78 111/64 110/71 O2 Saturation 96 100 96 Oxygen O2 Source Room air - EKG (time done) presentation Rhythm: NSR [place]: Normal Intervals: Normal [place] QRS: Normal Ischemia: Normal ST segments. No: ST elevation c/w ischemia, ST depression - Labs Labs: Laboratory Tests 01/18/19 01/18/19 01/18/19 11:50 11:50 11:50 WBC 7.8 RBC 4.97 Hgb 14.8 Hct 45.8 MCV 92.2 MCH 29.8 MCHC 32.3 RDW 12.3 Plt Count 176 MPV 10.9 H Neut # (Auto) 5.9 Lymph # (Auto) 1.2 L [place] # (Auto) 0.6 Eos # (Auto) 0.1 Baso # (Auto) 0.0 Absolute Nucleated RBC 0.00 Nucleated RBC % 0.0 Sodium 137 Potassium 3.6 Chloride 101 Carbon Dioxide 24 Anion Gap 12.0 BUN 18 Creatinine 0.5 Estimated GFR (MDRD) 124 Glucose 125 H Calcium 9.0 Magnesium 2.0 Total Bilirubin 0.7 AST 74 H ALT 43 Alkaline Phosphatase 91 Troponin I < 0.04 Total Protein 6.6 L Albumin 3.8 Globulin 2.8 Albumin/Globulin Ratio 1.4 Lipase 46 01/18/19 14:03 WBC RBC Hgb Hct MCV MCH MCHC RDW Plt Count MPV Neut # (Auto) Lymph # (Auto) [place] # (Auto) Eos # (Auto) Baso # (Auto) Absolute Nucleated RBC Nucleated RBC % Sodium Potassium Chloride Carbon Dioxide Anion Gap BUN Creatinine Estimated GFR (MDRD) Glucose Calcium Magnesium Total Bilirubin AST ALT Alkaline Phosphatase Troponin I < 0.04 Total Protein Albumin Globulin Albumin/Globulin Ratio Lipase - Rads (name of study) chest xray Radiology: Prelim report reviewed, EMP read contemporaneously (normal), See rad report PD MEDICAL DECISION MAKING - ED course Complexity details: reviewed results, re-evaluated patient (She is feeling better after some fluids and some Benadryl. She was not hypotensive and did not have angioedema so I did not did not see the need for epinephrine. Her EKG was without any ischemic changes. Her troponin and a repeat troponin II hours later (which is then about 4 hours after onset of symptoms) are normal.), considered differential, d/w patient Departure - Departure Disposition: 01 Home, Self Care Clinical Impression: Chest pressure Vaccine reaction Qualifiers: Encounter type: initial encounter Qualified Code(s): T50.Z95A - Adverse effect of other vaccines and biological substances, initial encounter Condition: Stable Record reviewed to determine appropriate education?: Yes Instructions: ED Chest Pain Atypical Unkn Cause Follow-Up: Enedina Andre PA-C [Primary Care Provider] - Comments: Assume this is a reaction to the vaccine you had earlier given the timing of it. No signs of acute heart attack or heart failure based on your EKG x-ray or blood tests. Follow-up with your primary care or return here if you have any exertional pattern of chest discomfort or shortness of breath. Return if significant symptoms occur again. Otherwise rest at home today and stay well- hydrated.
[2019-01-18 11:57] LABS: BASOPHILS % (AUTO) 0.1 %; EOSINOPHILS # (AUTO) 0.1 10^3/uL (0.0-0.7); EOSINOPHILS % (AUTO) 0.6 %; HGB - HEMOGLOBIN 14.8 g/dL (12.0-16.0); LYMPHOCYTES # (AUTO) 1.2 10^3/uL (1.5-3.5); LYMPHOCYTES % (AUTO) 15.2 %; MEAN CORPUSCULAR HEMOGLOBIN 29.8 pg (27.0-31.0); MEAN CORPUSCULAR HGB CONC 32.3 g/dL (32.0-36.0); MEAN CORPUSCULAR VOLUME 92.2 fL (81.0-99.0); MEAN PLATELET VOLUME 10.9 fL (7.9-10.8); MONOCYTES # (AUTO) 0.6 10^3/uL (0.0-1.0); MONOCYTES % (AUTO) 7.5 %; NEUTROPHILS # (AUTO) 5.9 10^3/uL (1.5-6.6); NEUTROPHILS % (AUTO) 76.2 %; PLT - PLATELET COUNT 176 10^3/uL (130-450); RED BLOOD COUNT 4.97 10^6/uL (4.20-5.40); RED CELL DISTRIBUTION WIDTH 12.3 % (12.0-15.0); WHITE BLOOD COUNT 7.8 x10^3/uL (4.8-10.8)
[2019-01-18 12:12] LABS: ALBUMIN 3.8 g/dL (3.2-5.5); ALBUMIN/GLOBULIN RATIO 1.4 (1.0-2.2); BILIRUBIN,TOTAL 0.7 mg/dL (0.2-1.0); CREATININE 0.5 mg/dL (0.4-1.0); TOTAL PROTEIN 6.6 g/dL (6.7-8.2)
--- NOTE | 2019-01-18 12:48 | XRAY Report ---
Reason: chest pain Procedure Date: 01/18/2019 Accession Number: [id number] / [id number] Procedure: XR - Chest 1 View X-Ray CPT Code: 98787 FULL RESULT: EXAM: CHEST RADIOGRAPHY EXAM DATE: 01/18/2019 12:20 PM. CLINICAL HISTORY: Chest pain. COMPARISON: CHEST 1 VIEW 07/26/2018 6:11 PM. TECHNIQUE: 1 view. FINDINGS: Lungs/Pleura: No focal opacities evident. No pleural effusion. No pneumothorax. Mediastinum: Within exam limitations, the cardiomediastinal contour is normal. Other: None. IMPRESSION: Normal single-view chest. RADIA
[2019-01-18 14:34] VITALS: BP 110/71
== END 2019-01-18 14:35 | disposition home or self-care (01) ==
LOC: ED 11:31
DX: R07.89 Other chest pain (principal); T50.Z95A Adverse effect of other vaccines and biological substances, initial encounter; Y84.8 Other medical procedures as the cause of abnormal reaction of the patient, or of later complication, without mention of misadventure at the time of the procedure; I10 Essential (primary) hypertension
CPT/HCPCS: 36415; 71045; 80053; 83690; 83735; 84484; 85025; 93005; 96365; 96375; 99283; A9270; J1200

== ENCOUNTER 2019-02-14 14:20 | Outpatient (CLI) | payer BC ==
[2019-02-14 15:05] LABS: BASOPHILS % (AUTO) 0.4 %; EOSINOPHILS # (AUTO) 0.1 10^3/uL (0.0-0.7); EOSINOPHILS % (AUTO) 1.1 %; HGB - HEMOGLOBIN 13.4 g/dL (12.0-16.0); LYMPHOCYTES # (AUTO) 2.9 10^3/uL (1.5-3.5); LYMPHOCYTES % (AUTO) 52.4 %; MEAN CORPUSCULAR HGB CONC 32.4 g/dL (32.0-36.0); MEAN CORPUSCULAR VOLUME 92.6 fL (81.0-99.0); MEAN PLATELET VOLUME 10.6 fL (7.9-10.8); MONOCYTES # (AUTO) 0.5 10^3/uL (0.0-1.0); MONOCYTES % (AUTO) 8.3 %; NEUTROPHILS % (AUTO) 37.4 %; PLT - PLATELET COUNT 165 10^3/uL (130-450); RED BLOOD COUNT 4.47 10^6/uL (4.20-5.40); WHITE BLOOD COUNT 5.4 x10^3/uL (4.8-10.8)
[2019-02-14 15:41] LABS: CHLORIDE 99 mmol/L (101-111); SODIUM 137 mmol/L (135-145)
[2019-02-14 15:42] LABS: % IRON SATURATION 24 % (20-50); AST ASPARTATE AMINOTRANSFERASE 20 IU/L (10-42); BILIRUBIN,TOTAL 0.8 mg/dL (0.2-1.0); BUN - BLOOD UREA NITROGEN 12 mg/dL (6-20); CALCIUM 9.3 mg/dL (8.5-10.3); CARBON DIOXIDE - CO2 27 mmol/L (21-32); CREATININE 0.5 mg/dL (0.4-1.0); GFR - MDRD 124 (>89); GLUCOSE 87 mg/dL (70-100); IRON 76 ug/dL (28-170); TOTAL IRON BINDING CAPACITY 318 ug/dL (250-450); TRANSFERRIN 227 mg/dL (192-382)
[2019-02-14 15:43] LABS: ALBUMIN 3.9 g/dL (3.2-5.5); ALBUMIN/GLOBULIN RATIO 1.6 (1.0-2.2); ALKALINE PHOSPHATASE 84 IU/L (42-121); ALT ALANINE AMINOTRANSFERASE 19 IU/L (10-60); CHOL/HDL RATIO 2.7 (<4.4); CHOLESTEROL 158 mg/dL; HDL CHOLESTEROL 58 mg/dL; LDL CHOLESTEROL,CALCULATED 88 mg/dL; LDL/HDL RATIO 1.5 (<4.4); TOTAL PROTEIN 6.4 g/dL (6.7-8.2); VLDL CHOLESTEROL 12 mg/dL
[2019-02-14 16:51] LABS: FERRITIN 85.7 ng/mL (11.0-306.8)
== END 2019-02-14 14:21 | disposition home or self-care (01) ==
LOC: LAB 14:20
PROVIDERS: ATTEND Surgery
DX: I10 Essential (primary) hypertension (principal); E78.5 Hyperlipidemia, unspecified; K91.2 Postsurgical malabsorption, not elsewhere classified; K22.70 Barrett's esophagus without dysplasia; B35.1 Tinea unguium; Z79.899 Other long term (current) drug therapy
CPT/HCPCS: 36415; 80053; 80061; 82306; 82607; 82728; 82746; 83540; 83721; 84425; 84450; 84460; 84466; 84590; 84630; 85025

== ENCOUNTER 2019-02-16 14:17 | Outpatient (CLI) | payer BC | END 2019-02-16 14:18 | disposition home or self-care (01) | LOC: LAB 14:17 | PROVIDERS: ATTEND Surgery | DX: K91.2 Postsurgical malabsorption, not elsewhere classified (principal); I10 Essential (primary) hypertension; E78.5 Hyperlipidemia, unspecified; K22.70 Barrett's esophagus without dysplasia | CPT/HCPCS: 84630 ==

== ENCOUNTER 2019-03-08 16:07 | Outpatient (CLI) | payer BC ==
[2019-03-08 17:57] VITALS: BP 120/70
--- NOTE | 2019-03-08 17:57 | SLEEP CARE CONSULTATION ---
Information from patient questionnaire entered by Francheska Early. I have reviewed and concur with the information entered by Francheska Early. This document represents the service I personally performed and the decisions made by me, Bharati Jon, RN, MSN, RUNNING INSTRUCTOR. History of Present Illness Previous diagnosis: Moderate, Obstructive Sleep Apnea-Hypopnea Syndrome AHI: 22.3 Reason for CPAP/BiPAP follow up: six month Equipment type: CPAP Equipment obtained from: [facility] Mask style: Nasal Mask brand: Respironics (Dreamwear) Backup mask available: Yes Last cushion change: in December when last used HPI additional information: Patient had bariatric surgery 06-28-19 and has lost significant weight. CPAP Compliance Data - Data Reviewed with Patient Average duration of nightly device use: 5.95 Compliance rate %: 26.7 Current pressure setting (cmH2O): 8-10 Humidity settin Heated hose settin Average residual AHI: 9.2 Average large leak: 10 secs Subjective Missed days of use due to: reports: illness (due to URI infections in winter and spring. ), other (Patient noted increase in sneezing and nasal congestion in December after changing equipment and wondered if allergy response. She cleaned equipment before used. She has also noted increased over all sensitivities since bariatric surgery. Surgeon is aware and no reason noted. ) Patient concerns: reports: condensation in mask/hose (Both humdity and heated hose at 5. ), nasal congestion, other (severe allergy symptoms after last 4 times using). denies: aerophagia, mask discomfort, air blowing in eyes, mask leak noise, dry mouth, nose, throat, epistaxis Observed to snore while using device: No On therapy, patient: denies: other (unknown benefit when last used she was waking with mask off of face - she was much more rested in last visit. ) Initial Irvona Sleepiness Scale score: 11 Current Irvona Sleepiness Scale score: 0 Allergies and Home Medications Allergy and home medication list: Amlodipine Besylate 5mg tab one daily Meloxican 15mg tab one daily Hydrochlorothiazide 25mg tab one daily in the morning Paroxetine 12.5mg tab two daily Terbinifine 250mg tab one daily Vitamin D3 5, 000 mg Tab one daily Aspirin 81mg tab one daily Turmeric 100mg cap five daily Folic Acid 1mg tab one daily Multivitamin Tab one daily Review of Systems Review of systems same as previous: Yes Physical Exam Blood Pressure: 120/70 Cuff size: long Heart Rate: 57 O2 Saturation: 97 Height: 5 ft Weight (kg): 81.737 kg Body Mass Index: 35.2 BMI Classification: Class 2 Impression and Plan 1. Obstructive Sleep Apnea-Hypopnea Syndrome, with poor treatment compliance and elevated residual AHI. On CPAP therapy, the patient is unsure of if feels more rested as not used since December due to nasal allergies symptoms that she first thought was related to CPAP use with new equipment and now resolved. As noted in history, she has noted increased sensitivities overall since her bariatric surgery. Prior visit in June showed her significantly more rested with use but she now has lost weight which has also increased her energy. Her residual AHI elevation when last used could be due to her significant weight loss as the central apneas are elevated which can be from too high of pressure as well as secondary to obstructive apnea. This could be why she was waking to mask off her face. Thus I will again reduce pressure range and this time to 4-8cmH20. She is advised of symptoms to report for pressure adjustment. Her BMI is 35 so more lucien ght loss is still a goal. Once she achieves her weight loss goal or if unable to tolerate CPAP even at lowest pressure a polysomnography will be completed to re-evaluate for sleep disordered breathing. She is advised to clean equipment well before using as directed. For her questions about a cleaning device, they are costly, not covered by insurance and not needed if she is cleaning her equipment well. She is advised to research to determine her need. For condensation, I showed her how to reduce the humidity 3 and heated hose to 4 as a starting point. Both can be adjusted as discussed to reduce condensation but not increase oral dryness. Patient's apnea severity and rationale for treatment to reduce apnea, improve sleep quality and reduce cardiovascular and cerebrovascular events was reviewed. I also reviewed the benefit of consistent device use of CPAP for hypertension. * Restart CPAP and Change autoCPAP pressure to 4-8 cmH2O * Adjust humidity and heated hose. * Clean equipment and rinse well. * Notify me if snoring with mask or feeling that the pressure is too much or too little * Attempt to lose weight * Return for follow up in 2 months , or sooner if concerns arise I spent 100% of this [30] minute visit face to face with the patient with greater than 50% of this was spent time counseling the patient and coordination of care.
== END 2019-03-08 16:08 | disposition home or self-care (01) ==
LOC: SC 16:07
PROVIDERS: ATTEND Nurse Practitioner Family
DX: G47.33 Obstructive sleep apnea (adult) (pediatric) (principal)
CPT/HCPCS: 99212; 99214

== ENCOUNTER 2019-08-11 11:03 | Day surgery (SDC) | payer BC ==
[2019-08-11] MEDS ORDERED: LACTATED RINGERS 1,000 ML IV ONE (11:07)
[2019-08-11] MEDS ORDERED: LIDO GARGLE 30 ML BOTTLE ONE (11:21)
[2019-08-11] MEDS ORDERED: MIDAZOLAM 2 MG/2 ML VIAL IVP ONE (12:19)
[2019-08-11] MEDS ORDERED: fentaNYL 250 MCG/5 ML VIAL IVP ONE (12:19)
[2019-08-11 13:15] VITALS: BP 128/74
== END 2019-08-11 11:04 | disposition home or self-care (01) ==
LOC: SDS 11:03
PROVIDERS: ATTEND Surgery
PROC: 0DB68ZX Excision of Stomach, Via Natural or Artificial Opening Endoscopic, Diagnostic (ICD-10-PCS; 2019-08-11)
PROC: 0DB48ZX Excision of Esophagogastric Junction, Via Natural or Artificial Opening Endoscopic, Diagnostic (ICD-10-PCS; 2019-08-11)
PROC: 0DB98ZX Excision of Duodenum, Via Natural or Artificial Opening Endoscopic, Diagnostic (ICD-10-PCS; principal; 2019-08-11 12:00)
DX: Z09 Encounter for follow-up examination after completed treatment for conditions other than malignant neoplasm (principal); K29.51 Unspecified chronic gastritis with bleeding; K44.9 Diaphragmatic hernia without obstruction or gangrene; K31.7 Polyp of stomach and duodenum; Z87.19 Personal history of other diseases of the digestive system; G47.30 Sleep apnea, unspecified; E66.9 Obesity, unspecified; I10 Essential (primary) hypertension; Z98.84 Bariatric surgery status

== ENCOUNTER 2020-12-21 14:09 | Outpatient (CLI) | payer BC ==
--- NOTE | 2020-12-21 14:52 | XRAY Report ---
PROCEDURE: Knee 3 View RT INDICATIONS: KNEE PAIN, RIGHT TECHNIQUE: 2 views of the right knee(s) were acquired. COMPARISON: 12/14/2017. FINDINGS: Bones: Again noted is prior medial femoral tibial compartment arthroplasty and prior intramedullary r od placement in distal femoral shaft. No gross hardware loosening or failure. No fractures or disloca tions. Lateral femoral tibial compartment and patellofemoral compartment osteophytic changes are seen . No suspicious bony lesions. Soft tissues: No joint effusion. No suspicious soft tissue calcifications. IMPRESSION: 1. Prior medial femoral tibial compartment and intramedullary phyllis placement in right femoral shaft. A natomic right knee alignment. No acute fracture or dislocation. No evidence of hardware complication. 2. No significant joint effusion. Osteoarthritic changes in lateral femoral tibial compartment and pa tellofemoral compartment. Reviewed by: Jovi Olmos MD on 12/21/2020 2:51 PM PDT Approved by: Jovi Olmos MD on 12/21/2020 2:51 PM PDT Station ID: [id number]
== END 2020-12-21 23:59 | disposition home or self-care (01) ==
LOC: DI.N 14:09
PROVIDERS: ATTEND Family Medicine
DX: M25.561 Pain in right knee (principal); M17.11 Unilateral primary osteoarthritis, right knee

== ENCOUNTER 2021-01-11 08:00 | Outpatient (CLI) | payer BC | END 2021-01-11 23:59 | disposition home or self-care (01) | LOC: LAB.N 08:00 | PROVIDERS: ATTEND Nurse Practitioner | DX: N39.0 Urinary tract infection, site not specified (principal) | CPT/HCPCS: 87086 ==

== ENCOUNTER 2021-01-13 01:24 | Outpatient (CLI) | payer BC | END 2021-01-13 01:25 | disposition critical access hospital (66) | LOC: EMS 01:24 | DX: R10.30 Lower abdominal pain, unspecified (principal); M54.5 Low back pain | CPT/HCPCS: A0425; A0429 ==

== ENCOUNTER 2021-01-13 01:43 | Emergency (ER) | payer BC ==
--- NOTE | 2021-01-13 01:46 | ED Physician Documentation ---
PD HPI BACK PAIN - Stated complaint Stated Complaint: BACK PX - History obtained from History obtained from: Patient, EMS - History of Present Illness Timing - onset: How many days ago (2-3) Timing - details: Gradual onset Pain level now: 8 Location: Lower Quality: Pain Associated symptoms: Weakness, Incontinent of urine. No: Fever, Numbness, Incontinent of stool Improves with: Rest Worsened by: Movement Recently seen: Surgery - Additional information Additional information: patient was brought in by ambulance. Patient had back and neck surgery 12/05/20 at [facility]. The procedures included diskectomies, decompression and fusions of multiple levels of cervical spine as well as cervical plating and screws C3-C6, followed by fusions, laminectomies, interbody allograft fusions of multiple levels lumbar spine. she had been recovering uneventfully until 2 days ago when she developed worsening pain across lower back that radiates around to lower anterior abdomen and pelvis, as well as BLE weakness and urinary incontinence. she was evaluated locally in outpatient setting 2 days ago and was diagnosed with UTI, prescribed bactrim and to come to ED if not improving within 48 hours which is what led to her coming to ED (lack of improvement; symptoms have slowly worsened). denies fevers but notes occasional sweats . her urinary incontinence is described as leaking of urine when she feels the urge to urinate, particularly when she gets up and ambulates towards the bathroom. Review of Systems Constitutional: reports: Chills, Sweats. denies: Fever Cardiac: reports: Reviewed and negative Respiratory: reports: Reviewed and negative GI: reports: Abdominal Pain (back pain radiates around both flanks to lower abdomen). denies: Nausea, Vomiting : reports: Incontinent Musculoskeletal: reports: Back pain Neurologic: reports: Focal weakness (BLE). denies: Numbness PD PAST MEDICAL HISTORY - Past Medical History Cardiovascular: Hypertension, High cholesterol, Murmur Respiratory: Sleep apnea Neuro: None Endocrine/Autoimmune: None GI: GERD, Hiatal hernia, Colon polyps MAIL ROOM CLERK: None HEENT: Chronic vision loss Psych: Depression Musculoskeletal: Chronic back pain Derm: None - Past Surgical History Past Surgical History: Yes General: Hiatal hernia repair, EGD Ortho: Knee replacement, Carpal Tunnel surgery, Spine surgery, Other /MAIL ROOM CLERK: section, Tubal ligation HEENT: Tonsil/Adenoidectomy Derm: Skin grafts - Present Medications Home Medications: Ambulatory Orders Medication Instructions Recorded Confirmed Cyanocobalamin (Vitamin B-12) 2,500 mcg PO DAILY 10/17/13 01/13/21 [Vitamin B-12] Kangenukone 1 tab PO DAILY 01/12/14 01/13/21 PARoxetine [Paxil] 20 mg PO DAILY 01/12/14 01/13/21 Acetaminophen [Tylenol Extra 500 mg PO PRN PRN 08/11/19 01/13/21 Strength] Atorvastatin [Lipitor] 10 mg PO DAILY 08/11/19 01/13/21 Losartan Potassium 25 mg PO DAILY 08/11/19 01/13/21 Omeprazole 10 mg PO DAILY 08/11/19 01/13/21 Potassium Citrate [Potassium 10 meq PO DAILY 08/11/19 01/13/21 Citrate ER] Sulfamethox/Trimeth 800/160 1 tablet PO BID 01/13/21 01/13/21 [Bactrim Ds] - Allergies Allergies/Adverse Reactions: Allergies Allergy/AdvReac Type Severity Reaction Status Date / Time vancomycin Allergy Severe Jimenez-Johnsons Verified 01/18/19 11:43 Syndrome hepatitis B virus vaccine Allergy Unknown Verified 01/13/21 02:17 - Social History Does the pt smoke?: No Smoking Status: Never smoker Does the pt drink ETOH?: Yes Does the pt have substance abuse?: No - Immunizations Immunizations are current?: Yes - POLST Patient has POLST: No PD ED PE NORMAL - Vitals Vital signs reviewed: Yes - General General: Alert and oriented X 3, No acute distress, Well developed/nourished - Neck Neck: No bony TTP, Other (Surgical incisions (anterior) are c/d/i) - Cardiac Cardiac: RRR, No murmur - Respiratory Respiratory: No respiratory distress, Clear bilaterally - Abdomen Abdomen: Soft, Non tender - Back Back: No spinal TTP - Neuro Neuro: Alert and oriented X 3, No motor deficit (4/5 bilateral dorsi/plantarflexion), No sensory deficit, Other (2+/4 bilateral patellar DTR without clonus) PD ED PE EXPANDED - Back Back: Other (Midline lumbar incision is C/D/I except for 1 cm length at caudal end with 2-3mm gap between wound edges, and 2 cm length at cranial end with 3 mm gap and exposed adipose tissue. No erythema, no discharge.) Results - Vitals Vitals: Vital Signs - 24 hr 01/13/21 01/13/21 01/13/21 01:56 02:04 03:51 Temperature 100.4 C H 100.3 C H 37.4 C Heart Rate 87 82 75 Respiratory 18 18 20 Rate Blood Pressure 118/67 111/63 112/67 O2 Saturation 97 96 94 01/13/21 05:25 Temperature 36.8 C Heart Rate 70 Respiratory 16 Rate Blood Pressure 118/65 O2 Saturation 94 Oxygen O2 Source Room air - Labs Labs: Laboratory Tests 01/13/21 01/13/21 01/13/21 02:19 02:40 02:40 WBC 10.1 RBC 3.96 L Hgb 11.7 L Hct 36.3 L MCV 91.7 MCH 29.5 MCHC 32.2 RDW 12.8 Plt Count 336 MPV 10.2 Neut # (Auto) 6.8 H Lymph # (Auto) 1.9 [place] # (Auto) 1.3 H Eos # (Auto) 0.0 Baso # (Auto) 0.0 Absolute Nucleated RBC 0.00 Nucleated RBC % 0.0 Sodium 137 Potassium 4.0 Chloride 102 Carbon Dioxide 24 Anion Gap 11.0 BUN 10 Creatinine 0.6 Estimated GFR (MDRD) 100 Glucose 113 H Calcium 9.0 Total Bilirubin 0.9 AST 21 ALT 12 Alkaline Phosphatase 80 Total Protein 6.8 Albumin 3.4 Globulin 3.4 Albumin/Globulin Ratio 1.0 Lipase 28 Urine Color YELLOW Urine Clarity CLEAR Urine pH 6.5 Ur Specific [place] 1.025 Urine Protein NEGATIVE Urine Glucose (UA) NEGATIVE Urine Ketones TRACE Urine Occult Blood NEGATIVE Urine Nitrite NEGATIVE Urine Bilirubin NEGATIVE Urine Urobilinogen 1 (NORMAL) Ur Leukocyte Esterase NEGATIVE Ur Microscopic Review NOT INDICATED Urine Culture Comments NOT INDICATED PD MEDICAL DECISION MAKING - ED course Complexity details: reviewed old records (patient provides copy of surgical records from [facility] and I reviewed these records), reviewed results, re-evaluated patient, considered differential, d/w patient ED course: patient is given 1mg IV dilaudid early in stay which provided good pain relief for remainder of her stay; she declined further pain medication during ED stay. patients blood test results are unremarkable and thus reassuring. Her urinalysis is normal. She was able to ambulate to and back from the bathroom slowly using a cane but not needing assistance. Patient would benefit from MRI but this is not available at [facility] until tomorrow. I contacted the [facility] transfer center for consult and was put in touch with Dr. Donna Tsai (neurosurgery emission specialist). He agrees patient likely needs MRI, but based on H+P, test results, and ability to ambulate albeit with some difficulty due to pain and weakness, this can be undertaken in outpatient setting . Included in this discussion was her low-grade fever in ED (defervesced without antipyretics), her urinary incontinence, and small openings noted in the lumbar surgical incision site. Plan is that he will arrange for patient to be contacted tomorrow by either the neurosurgical or orthopedic eviction specialist from [facility] to arrange for expeditious reevaluation to include MRI. I explained this plan to patient and she is comfortable with this plan. She is also instructed to return at any time for worsening symptoms, and to contact her spine surgeon if she has not received a call regarding follow up by noon tomorrow. Departure - Departure Disposition: 01 Home, Self Care Clinical Impression: Back pain Qualifiers: Back pain location: low back pain Chronicity: unspecified Back pain laterality: bilateral Sciatica presence: without sciatica Qualified Code(s): M54.5 - Low back pain Urinary incontinence Qualifiers: Urinary Incontinence type: unspecified incontinence Qualified Code(s): R32 - Unspecified urinary incontinence Condition: Good Instructions: ED Neck Back Pain General, ED Bladder Instability Female Comments: I discussed your case with the neurosurgeon on-call for the [facility] system. Per this conversation, you should receive a call at home tomorrow morning (Thursday, 01/14) regarding scheduling for urgent outpatient MRI. If you do not hear from anyone by noon on Thursday, contact your spinal surgeon's office to discuss follow-up arrangements. Discharge Date/Time: 01/13/21 05:35
[2021-01-13] MEDS ORDERED: HYDROmorphone 1 MG/ML CARPUJECT IVP STA (02:08)
[2021-01-13 02:37] LABS: BILIRUBIN,URINE NEGATIVE (NEGATIVE); GLUCOSE, URINE (UA) NEGATIVE (NEGATIVE); KETONES,URINE (UA) TRACE mg/dL (NEGATIVE); LEUKOCYTE ESTERASE, URINE NEGATIVE (NEGATIVE); NITRITE,URINE NEGATIVE (NEGATIVE); OCCULT BLOOD,URINE NEGATIVE (NEGATIVE); PH,URINE 6.5 PH (5.0-7.5); PROTEIN,URINE NEGATIVE (NEGATIVE); UROBILINOGEN,URINE 1 (NORMAL) E.U./dL (NORMAL)
[2021-01-13 02:39] LABS: CLARITY,URINE CLEAR (CLEAR)
[2021-01-13 02:47] LABS: BASOPHILS % (AUTO) 0.3 %; EOSINOPHILS % (AUTO) 0.1 %; HCT - HEMATOCRIT 36.3 % (37.0-47.0); HGB - HEMOGLOBIN 11.7 g/dL (12.0-16.0); LYMPHOCYTES # (AUTO) 1.9 10^3/uL (1.5-3.5); MEAN CORPUSCULAR HEMOGLOBIN 29.5 pg (27.0-31.0); MEAN CORPUSCULAR HGB CONC 32.2 g/dL (32.0-36.0); MEAN CORPUSCULAR VOLUME 91.7 fL (81.0-99.0); MEAN PLATELET VOLUME 10.2 fL (7.9-10.8); MONOCYTES # (AUTO) 1.3 10^3/uL (0.0-1.0); MONOCYTES % (AUTO) 12.5 %; NEUTROPHILS # (AUTO) 6.8 10^3/uL (1.5-6.6); NEUTROPHILS % (AUTO) 67.6 %; PLT - PLATELET COUNT 336 10^3/uL (130-450); RED BLOOD COUNT 3.96 10^6/uL (4.20-5.40); RED CELL DISTRIBUTION WIDTH 12.8 % (12.0-15.0); WHITE BLOOD COUNT 10.1 x10^3/uL (4.8-10.8)
[2021-01-13 03:22] LABS: ALBUMIN 3.4 g/dL (3.2-5.5); BILIRUBIN,TOTAL 0.9 mg/dL (0.2-1.0); CREATININE 0.6 mg/dL (0.4-1.0); TOTAL PROTEIN 6.8 g/dL (6.7-8.2)
[2021-01-13 05:37] VITALS: BP 118/65
== END 2021-01-13 05:35 | disposition home or self-care (01) ==
LOC: EDUNIT# → ED 01:43
DX: M54.5 Low back pain (principal); R32 Unspecified urinary incontinence; R50.9 Fever, unspecified
CPT/HCPCS: 36415; 80053; 81003; 83690; 85025; 96374; 99283; 99284; J1170; 81001; 87086

== ENCOUNTER 2021-03-08 17:00 | Outpatient (CLI) | payer BC ==
--- NOTE | 2021-03-08 19:19 | Ultrasound Report ---
PROCEDURE: Pelvic w/Transvaginal INDICATIONS: POSTMENOPAUSAL BLEEDING, HEMATURIA TECHNIQUE: Real-time scanning was performed of the pelvic organs, with image documentation. Additional endovagi nal scanning was necessary due to incomplete visualization of the adnexal and endometrial structures by transabdominal scanning. COMPARISON: None. FINDINGS: The uterine body measures 2.9 x 4.1 x 7.3 cm. The endometrium is abnormally thickened, measuring up t o 8 mm in double layer thickness. There is an ill-defined boundary of the endometrium with the adjace nt myometrium. The endometrium demonstrates an abnormal multicystic and hyperechoic appearance. A mg pected arterial feeding vessel is identified on the Doppler images. Cervical nabothian cysts noted. The right ovary measures 1.3 x 2.1 x 2.3 cm and contains a few cysts, largest measuring 1.67 m. Shweta l size and appearance of the left ovary. IMPRESSION: Thickened and multicystic endometrium, suggestive of endometrial carcinoma in the setting of postmeno pausal bleeding. Gynecologic referral and endometrial biopsy recommended. Reviewed by: Johann Choe MD on 03/08/2021 7:18 PM PDT Approved by: Johann Choe MD on 03/08/2021 7:18 PM PDT Station ID: [id number]
--- NOTE | 2021-03-08 19:28 | Ultrasound Report ---
PROCEDURE: Retroperitoneal INDICATIONS: POSTMENOPAUSAL BLEEDING, HEMATURIA TECHNIQUE: Real-time scanning was performed of the retroperitoneal organs, with image documentation. COMPARISON: None. FINDINGS: Kidneys: Kidneys are normal in size. Right kidney measures 11.2 cm long; left kidney measures 11.3 cm long. Right renal cortical thickness is 1.1 cm; left renal cortical thickness is 1.3 cm. On the right, there is a 4.4 x 3.6 cm parapelvic cyst present. 2 shadowing calculi are noted measurin g to 0.9 and 1.8 cm respectively. No hydronephrosis. On the left, hypoechoic medullary lesions within the vascularity measure 1.7 x 2.1 cm and 1.6 x 1.5 c m respectively. There is a shadowing calculi measuring 0.5 x 0.6 cm. No hydronephrosis. Bladder: Prevoid 192 cc. Postvoid 27 cc. Bilateral ureteral jets appreciated. IMPRESSION: 1. Hypoechoic solid foci in the left renal medulla probably reflects prominent columns of Caio. Fol low-up CT urogram with contrast could further evaluate and exclude mass lesions. 2. Right-sided 4.4 cm parapelvic cyst without definitive evidence of hydronephrosis. 3. Bilateral nonobstructive renal calculi Reviewed by: Maury Grajeda MD on 03/08/2021 6:26 PM JEFF Approved by: Maury Grajeda MD on 03/08/2021 6:26 PM JEFF Station ID: [id number]
== END 2021-03-08 17:01 | disposition home or self-care (01) ==
LOC: DI 17:00
PROVIDERS: ATTEND Obstetrics & Gynecology
DX: R93.89 Abnormal findings on diagnostic imaging of other specified body structures (principal); N20.0 Calculus of kidney; N28.89 Other specified disorders of kidney and ureter; R31.9 Hematuria, unspecified; N95.0 Postmenopausal bleeding

== ENCOUNTER 2021-03-10 13:27 | Outpatient (CLI) | payer BC | END 2021-03-10 13:28 | disposition home or self-care (01) | LOC: LAB 13:27 | PROVIDERS: ATTEND Obstetrics & Gynecology | DX: R31.9 Hematuria, unspecified (principal) | CPT/HCPCS: 81599; 82570; 84156 ==

== ENCOUNTER 2021-09-17 08:00 | Outpatient (CLI) | payer BC | END 2021-09-17 23:59 | LOC: LAB 08:00 | PROVIDERS: ATTEND Family Medicine | DX: N20.9 Urinary calculus, unspecified (principal) | CPT/HCPCS: 87086 ==

== ENCOUNTER 2021-10-08 09:13 | Outpatient (CLI) | payer BC | END 2021-10-08 09:14 | disposition home or self-care (01) | LOC: LAB.N 09:13 | PROVIDERS: ATTEND Obstetrics & Gynecology | DX: N20.0 Calculus of kidney (principal); R82.994 Hypercalciuria | CPT/HCPCS: 36415; 82306; 83970 ==

== ENCOUNTER 2021-11-14 08:00 | Outpatient (CLI) | payer BC ==
[2021-11-14 21:28] LABS: BILIRUBIN,URINE NEGATIVE (NEGATIVE); GLUCOSE, URINE (UA) NEGATIVE (NEGATIVE); KETONES,URINE (UA) NEGATIVE (NEGATIVE); LEUKOCYTE ESTERASE, URINE NEGATIVE (NEGATIVE); NITRITE,URINE NEGATIVE (NEGATIVE); OCCULT BLOOD,URINE TRACE-INTA (NEGATIVE); PROTEIN,URINE TRACE mg/dL (NEGATIVE); UROBILINOGEN,URINE 0.2 (NORMAL) E.U./dL (NORMAL)
[2021-11-14 21:37] LABS: BACTERIA,URINE Few /HPF (None Seen); CLARITY,URINE CLEAR (CLEAR); RBC,URINE 0-5 /HPF (0-5); SQUAMOUS EPITHELIAL CELL,UR MANY Squamous (<= Few); WBC,URINE 0-3 /HPF (0-5)
[2021-11-14 21:38] LABS: CRYSTALS,URINE 26-50 Ca Oxalate /LPF
== END 2021-11-14 23:59 | disposition home or self-care (01) ==
LOC: LAB.N 08:00
PROVIDERS: ATTEND Physician Assistant Medical
DX: N20.9 Urinary calculus, unspecified (principal); N39.0 Urinary tract infection, site not specified
CPT/HCPCS: 81001; 87086

== ENCOUNTER 2022-05-07 09:47 | Outpatient (CLI) | payer BC | END 2022-05-07 09:48 | disposition home or self-care (01) | LOC: LAB.N 09:47 | PROVIDERS: ATTEND Ophthalmology | DX: U07.1 COVID-19 (principal) ==

== ENCOUNTER 2022-06-30 08:00 | Outpatient (CLI) | payer BC | END 2022-06-30 23:59 | disposition home or self-care (01) | LOC: LAB.N 08:00 | PROVIDERS: ATTEND Physician Assistant Medical | DX: N30.00 Acute cystitis without hematuria (principal) | CPT/HCPCS: 87086 ==

== ENCOUNTER 2022-07-04 08:00 | Outpatient (CLI) | payer BC | END 2022-07-04 23:59 | disposition home or self-care (01) | LOC: LAB 08:00 | PROVIDERS: ATTEND Nurse Practitioner | DX: R30.0 Dysuria (principal) | CPT/HCPCS: 87086 ==

== ENCOUNTER 2022-07-14 14:37 | Outpatient (CLI) | payer BC ==
--- NOTE | 2022-07-17 11:57 | Mammography Report ---
BILATERAL DIGITAL SCREENING MAMMOGRAM 3D/2D: 07/14/2022 CLINICAL: Family history of breast cancer. Routine screening. Comparison is made to exams dated: 06/01/2020 mammogram - [facility], 02/23/2014 mammogram , 07/19/2012 mammogram, 06/07/2011 mammogram - [facility], 11/26/2005 mammogram, and 06/12/2004 mammogram - [facility]. There are scattered areas of fibroglandular density in both breasts (category b / 25%-50% glandular t issue). No significant masses, calcifications, or other findings are seen in either breast. There has been no significant interval change. IMPRESSION: NEGATIVE There is no mammographic evidence of malignancy. A 1 year screening mammogram is recommended. Based on the Tyrer Cuzick model (a risk assessment model) the patients lifetime risk is 8.7% and her 10 year risk is 4.6%. According to the ACR, ACS, and NCCN guidelines, an annual breast MRI exam kylah g with mammogram is recommended if the patients lifetime risk is 20% or greater. This exam was interpreted at Station ID: [id number]. NOTE: For mammograms, a report in lay terms will be sent to the patient. Approximately 15% of breast malignancies will not be visualized mammographically. In the management of a palpable breast mass, a negative mammogram must not discourage biopsy of a clinically suspicious lesion. Electronically Signed By: Johann Choe M.D., jr/abbi:07/17/2022 10:56:58 ACR BI-RADS Category 1: Negative 3341F PARENCHYMAL PATTERN: (A) - The breast(s) demonstrate(s) scattered fibroglandular densities. BI-RADS CATEGORY: (1) - 1 RECOMMENDATION: (ANNUAL) - Recommend routine annual screening mammography. [id number] 1 year screening LATERALITY: (B)
== END 2022-07-14 14:38 | disposition home or self-care (01) ==
LOC: DI.N 14:37
DX: Z12.31 Encounter for screening mammogram for malignant neoplasm of breast (principal); Z80.3 Family history of malignant neoplasm of breast

== ENCOUNTER 2022-08-06 09:26 | Outpatient (CLI) | payer BC ==
[2022-08-06 12:10] LABS: BASOPHILS % (AUTO) 0.7 %; EOSINOPHILS # (AUTO) 0.1 10^3/uL (0.0-0.7); EOSINOPHILS % (AUTO) 1.4 %; HCT - HEMATOCRIT 40.6 % (37.0-47.0); HGB - HEMOGLOBIN 12.4 g/dL (12.0-16.0); LYMPHOCYTES # (AUTO) 1.6 10^3/uL (1.5-3.5); LYMPHOCYTES % (AUTO) 36.5 %; MEAN CORPUSCULAR HEMOGLOBIN 25.6 pg (27.0-31.0); MEAN CORPUSCULAR HGB CONC 30.5 g/dL (32.0-36.0); MEAN CORPUSCULAR VOLUME 83.9 fL (81.0-99.0); MEAN PLATELET VOLUME 12.6 fL (7.9-10.8); MONOCYTES # (AUTO) 0.4 10^3/uL (0.0-1.0); MONOCYTES % (AUTO) 9.3 %; NEUTROPHILS # (AUTO) 2.3 10^3/uL (1.5-6.6); NEUTROPHILS % (AUTO) 51.9 %; PLT - PLATELET COUNT 231 10^3/uL (130-450); RED BLOOD COUNT 4.84 10^6/uL (4.20-5.40); RED CELL DISTRIBUTION WIDTH 15.7 % (12.0-15.0); WHITE BLOOD COUNT 4.4 x10^3/uL (4.8-10.8)
[2022-08-06 12:24] LABS: ALBUMIN 3.8 g/dL (3.2-5.5); ALBUMIN/GLOBULIN RATIO 1.4 (1.0-2.2); ALKALINE PHOSPHATASE 76 IU/L (42-121); ALT ALANINE AMINOTRANSFERASE 13 IU/L (10-60); AST ASPARTATE AMINOTRANSFERASE 18 IU/L (10-42); BILIRUBIN,TOTAL 0.8 mg/dL (0.2-1.0); BUN - BLOOD UREA NITROGEN 10 mg/dL (6-20); CARBON DIOXIDE - CO2 27 mmol/L (21-32); CHLORIDE 104 mmol/L (101-111); CHOL/HDL RATIO 2.4 (<4.4); CHOLESTEROL 153 mg/dL; CREATININE 0.6 mg/dL (0.4-1.0); GFR - MDRD 99 (>89); GLUCOSE 93 mg/dL (70-100); HDL CHOLESTEROL 63 mg/dL; LDL CHOLESTEROL,CALCULATED 78 mg/dL; LDL/HDL RATIO 1.2 (<4.4); POTASSIUM 4.1 mmol/L (3.5-5.0); SODIUM 138 mmol/L (135-145); TOTAL PROTEIN 6.6 g/dL (6.7-8.2); TRIGLYCERIDES 58 mg/dL; VLDL CHOLESTEROL 12 mg/dL
[2022-08-06 12:42] LABS: THYROID STIMULATING HORMONE 0.33 uIU/mL (0.34-5.60)
[2022-08-06 12:50] LABS: ESTIMATED AVERAGE GLUCOSE 117 mg/dL (70-100); HEMOGLOBIN A1c% 5.7 % (4.27-6.07)
[2022-08-06 13:11] LABS: FOLLICLE STIMULATING HORMONE 23.75 mIU/mL
[2022-08-06 14:24] LABS: FREE T4 (FREE THYROXINE) 0.7 ng/dL (0.58-1.64)
[2022-08-07 08:09] LABS: PROGESTERONE 3.3 ng/mL (.)
== END 2022-08-06 09:27 | disposition home or self-care (01) ==
LOC: LAB.N 09:26
PROVIDERS: ATTEND Registered Nurse
DX: E03.9 Hypothyroidism, unspecified (principal); I10 Essential (primary) hypertension; E66.9 Obesity, unspecified; R53.83 Other fatigue
CPT/HCPCS: 36415; 80053; 80061; 82670; 83001; 83036; 83721; 84144; 84403; 84439; 84443; 85025

== ENCOUNTER 2022-08-10 02:35 | Emergency (ER) | payer BC ==
[2022-08-10] MEDS ORDERED: ONDANSETRON 4 MG/2 ML VIAL IVP STA (02:54)
[2022-08-10] MEDS ORDERED: SODIUM CHLORIDE 0.9% 1,000 ML IV STA (02:54)
[2022-08-10] MEDS ORDERED: HYDROmorphone 1 MG/ML CARPUJECT IVP STA (02:54)
[2022-08-10] MEDS ORDERED: iohexoL-300 100 ML VIAL ONE (03:00)
[2022-08-10 03:15] LABS: BASOPHILS % (AUTO) 0.4 %; EOSINOPHILS # (AUTO) 0.1 10^3/uL (0.0-0.7); EOSINOPHILS % (AUTO) 0.6 %; HCT - HEMATOCRIT 38.1 % (37.0-47.0); HGB - HEMOGLOBIN 12.3 g/dL (12.0-16.0); LYMPHOCYTES # (AUTO) 1.1 10^3/uL (1.5-3.5); LYMPHOCYTES % (AUTO) 13.3 %; MEAN CORPUSCULAR HEMOGLOBIN 26.3 pg (27.0-31.0); MEAN CORPUSCULAR HGB CONC 32.3 g/dL (32.0-36.0); MEAN CORPUSCULAR VOLUME 81.6 fL (81.0-99.0); MEAN PLATELET VOLUME 10.9 fL (7.9-10.8); MONOCYTES # (AUTO) 0.6 10^3/uL (0.0-1.0); MONOCYTES % (AUTO) 7.5 %; NEUTROPHILS # (AUTO) 6.4 10^3/uL (1.5-6.6); NEUTROPHILS % (AUTO) 78.1 %; PLT - PLATELET COUNT 205 10^3/uL (130-450); RED BLOOD COUNT 4.67 10^6/uL (4.20-5.40); RED CELL DISTRIBUTION WIDTH 15.4 % (12.0-15.0); WHITE BLOOD COUNT 8.2 x10^3/uL (4.8-10.8)
[2022-08-10 03:18] LABS: BILIRUBIN,URINE NEGATIVE (NEGATIVE); GLUCOSE, URINE (UA) NEGATIVE (NEGATIVE); KETONES,URINE (UA) NEGATIVE (NEGATIVE); LEUKOCYTE ESTERASE, URINE NEGATIVE (NEGATIVE); MUDS CUTOFF CONCENTRATIONS CUTOFF CONC BELOW:; NITRITE,URINE NEGATIVE (NEGATIVE); OCCULT BLOOD,URINE LARGE (NEGATIVE); PROTEIN,URINE NEGATIVE (NEGATIVE); UROBILINOGEN,URINE 1 (NORMAL) E.U./dL (NORMAL)
[2022-08-10 03:19] LABS: CLARITY,URINE CLEAR (CLEAR)
[2022-08-10 03:28] LABS: AMPHETAMINE SCREEN,URINE NEGATIVE (NEGATIVE); BACTERIA,URINE Rare /HPF (None Seen); BARBITURATE SCREEN,UR NEGATIVE (NEGATIVE); BENZODIAZEPINES SCREEN, URINE NEGATIVE (NEGATIVE); COCAINE SCREEN URINE NEGATIVE (NEGATIVE); METHADONE SCREEN, URINE NEGATIVE (NEGATIVE); METHAMPHETAMINES SCREEN, URINE NEGATIVE (NEGATIVE); OPIATE SCREEN, URINE NEGATIVE (NEGATIVE); OXYCODONE SCREEN, URINE NEGATIVE (NEGATIVE); PROPOXYPHENE SCREEN, URINE NEGATIVE (NEGATIVE); SQUAMOUS EPITHELIAL CELL,UR RARE Squamous (<= Few); THC CANNABINOID SCREEN, URINE NEGATIVE (NEGATIVE); TRICYCLIC ANTIDEPRESSANT,URINE NEGATIVE (NEGATIVE); WBC,URINE 0-3 /HPF (0-5)
[2022-08-10 03:29] LABS: ALBUMIN 3.8 g/dL (3.2-5.5); ALBUMIN/GLOBULIN RATIO 1.2 (1.0-2.2); ALKALINE PHOSPHATASE 75 IU/L (42-121); ALT ALANINE AMINOTRANSFERASE 13 IU/L (10-60); AST ASPARTATE AMINOTRANSFERASE 18 IU/L (10-42); BILIRUBIN,TOTAL 0.5 mg/dL (0.2-1.0); BUN - BLOOD UREA NITROGEN 17 mg/dL (6-20); CALCIUM 9.4 mg/dL (8.5-10.3); CARBON DIOXIDE - CO2 27 mmol/L (21-32); CHLORIDE 103 mmol/L (101-111); CREATININE 0.7 mg/dL (0.4-1.0); ETOH - ETHANOL < 5.0 mg/dL; GFR - MDRD 83 (>89); GLUCOSE 136 mg/dL (70-100); LIPASE 59 U/L (22-51); POTASSIUM 4.4 mmol/L (3.5-5.0); SODIUM 141 mmol/L (135-145)
[2022-08-10] MEDS ORDERED: iohexoL-300 100 ML VIAL IVP ONE (04:25)
[2022-08-10] MEDS ORDERED: KETOROLAC 30 MG/ML VIAL IVP STA (04:31)
--- NOTE | 2022-08-10 06:24 | ED Physician Documentation ---
History of Present Illness - Stated complaint Stated Complaint: RT SIDE AB PX/ VOMIT - Chief complaint Chief Complaint: Abd Pain - Additonal information Additional information: Patient is 67-year-old female presenting to the emergency department with right- sided flank pain. Symptoms ongoing x1 day. Associated with nausea vomiting. Reports history of kidney stones. Denies chest pain or shortness of breath. Denies dysuria or blood in urine. Review of Systems Constitutional: denies: Fever Eyes: denies: Loss of vision Ears: denies: Loss of hearing Nose: denies: Rhinorrhea / runny nose Throat: denies: Dental pain / toothache Cardiac: denies: Chest pain / pressure Respiratory: denies: Dyspnea GI: reports: Abdominal Pain, Nausea, Vomiting : denies: Dysuria PD PAST MEDICAL HISTORY - Past Medical History Past Medical History: Yes Cardiovascular: Hypertension, High cholesterol, Murmur Respiratory: Sleep apnea Neuro: None Endocrine/Autoimmune: None GI: GERD, Hiatal hernia, Colon polyps [employer]: None HEENT: Chronic vision loss Psych: Depression Musculoskeletal: Chronic back pain Derm: None - Past Surgical History Past Surgical History: Yes General: Hiatal hernia repair, EGD Ortho: Knee replacement, Carpal Tunnel surgery, Spine surgery, Other /[employer]: section, Tubal ligation HEENT: Tonsil/Adenoidectomy Derm: Skin grafts - Present Medications Home Medications: Ambulatory Orders Medication Instructions Recorded Confirmed Potassium Citrate [Potassium 10 meq PO DAILY 08/11/19 08/10/22 Citrate ER] Celecoxib [Celebrex] 200 mg PO DAILY 08/10/22 08/10/22 Esomeprazole Magnesium [Nexium 20 mg PO DAILY 08/10/22 08/10/22 24Hr] HYDROcod/ACETAM 5/325 [Clinton 5/325] 1 tab PO Q6HR PRN #10 tablet 08/10/22 Ibuprofen [Motrin] 600 mg PO Q6H PRN #30 tab 08/10/22 Medroxyprogesterone Acetate 10 mg PO DAILY 08/10/22 08/10/22 [Provera] ONDANSETRON ODT Prepack 2 [ZOFRAN 4 mg TL Q6H #10 tablet 08/10/22 ODT Prepack 2] Rosuvastatin Calcium [Crestor] 5 mg PO DAILY 08/10/22 08/10/22 Telmisartan 40 mg PO DAILY 08/10/22 08/10/22 Telmisartan 40 mg PO DAILY 08/10/22 08/10/22 Xiromed 100 mg PO QPM 08/10/22 estradioL [Estradiol] 1 applic TOP DAILY 08/10/22 08/10/22 - Allergies Allergies/Adverse Reactions: Allergies Allergy/AdvReac Type Severity Reaction Status Date / Time vancomycin Allergy Severe Jimenez-Johnsons Verified 08/10/22 02:49 Syndrome hepatitis B virus vaccine Allergy Unknown Verified 08/10/22 02:49 - Social History Does the pt smoke?: No Smoking Status: Never smoker Does the pt drink ETOH?: Yes Does the pt have substance abuse?: No - Immunizations Immunizations are current?: Yes - POLST Patient has POLST: No PD ED PE NORMAL - Vitals Vital signs reviewed: Yes - General General: Alert and oriented X 3 - HEENT HEENT: Atraumatic - Neck Neck: Supple, no meningeal sign - Cardiac Cardiac: RRR - Respiratory Respiratory: No respiratory distress - Abdomen Abdomen: Normal bowel sounds - Female Female : Deferred - Rectal Rectal: Deferred - Back Back: No CVA TTP - Derm Derm: Normal color - Extremities Extremities: No deformity - Neuro Neuro: Alert and oriented X 3, 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, No motor deficit, Normal speech Results - Vitals Vitals: Vital Signs - 24 hr 08/10/22 08/10/22 08/10/22 02:42 03:38 03:52 Temperature 37.0 C Heart Rate 64 78 72 Respiratory 16 12 23 Rate Blood Pressure 130/84 H 144/66 H 144/66 H O2 Saturation 97 94 94 08/10/22 05:16 Temperature 36.2 C L Heart Rate 74 Respiratory 18 Rate Blood Pressure 124/61 O2 Saturation 94 Oxygen O2 Source Room air - EKG (time done) 0322 Rate: Rate (enter#) (63) Rhythm: NSR [place]: Normal Intervals: RBBB QRS: Normal Ischemia: Normal ST segments Compare to prior EKG: Changed from prior EKG Computer interpretation: Agree with computer - Labs Labs: Laboratory Tests 08/10/22 08/10/22 08/10/22 03:10 03:10 03:10 WBC 8.2 RBC 4.67 Hgb 12.3 Hct 38.1 MCV 81.6 MCH 26.3 L MCHC 32.3 RDW 15.4 H Plt Count 205 MPV 10.9 H Neut # (Auto) 6.4 Lymph # (Auto) 1.1 L Boyle # (Auto) 0.6 Eos # (Auto) 0.1 Baso # (Auto) 0.0 Absolute Nucleated RBC 0.00 Nucleated RBC % 0.0 Sodium 141 Potassium 4.4 Chloride 103 Carbon Dioxide 27 Anion Gap 11.0 BUN 17 Creatinine 0.7 Estimated GFR (MDRD) 83 L Glucose 136 H Lactic Acid Calcium 9.4 Total Bilirubin 0.5 AST 18 ALT 13 Alkaline Phosphatase 75 Total Protein 7.0 Albumin 3.8 Globulin 3.2 Albumin/Globulin Ratio 1.2 Lipase 59 H Urine Color YELLOW Urine Clarity CLEAR Urine pH 6.0 Ur Specific [place] >=1.030 H Urine Protein NEGATIVE Urine Glucose (UA) NEGATIVE Urine Ketones NEGATIVE Urine Occult Blood LARGE H Urine Nitrite NEGATIVE Urine Bilirubin NEGATIVE Urine Urobilinogen 1 (NORMAL) Ur Leukocyte Esterase NEGATIVE Urine RBC 11-25 H Urine WBC 0-3 Ur Squamous Epith Cells RARE Squamous Urine Bacteria Rare Ur Microscopic Review INDICATED Urine Culture Comments NOT INDICATED Urine Opiates Screen NEGATIVE Ur Oxycodone Screen NEGATIVE Urine Methadone Screen NEGATIVE Ur Propoxyphene Screen NEGATIVE Ur Barbiturates Screen NEGATIVE Ur Tricyclics Screen NEGATIVE Ur Phencyclidine Scrn NEGATIVE Ur Amphetamine Screen NEGATIVE U Methamphetamines Scrn NEGATIVE U Benzodiazepines Scrn NEGATIVE Urine Cocaine Screen NEGATIVE U Cannabinoids Screen NEGATIVE Ethyl Alcohol < 5.0 08/10/22 03:20 WBC RBC Hgb Hct MCV MCH MCHC RDW Plt Count MPV Neut # (Auto) Lymph # (Auto) Boyle # (Auto) Eos # (Auto) Baso # (Auto) Absolute Nucleated RBC Nucleated RBC % Sodium Potassium Chloride Carbon Dioxide Anion Gap BUN Creatinine Estimated GFR (MDRD) Glucose Lactic Acid 1.0 Calcium Total Bilirubin AST ALT Alkaline Phosphatase Total Protein Albumin Globulin Albumin/Globulin Ratio Lipase Urine Color Urine Clarity Urine pH Ur Specific [place] Urine Protein Urine Glucose (UA) Urine Ketones Urine Occult Blood Urine Nitrite Urine Bilirubin Urine Urobilinogen Ur Leukocyte Esterase Urine RBC Urine WBC Ur Squamous Epith Cells Urine Bacteria Ur Microscopic Review Urine Culture Comments Urine Opiates Screen Ur Oxycodone Screen Urine Methadone Screen Ur Propoxyphene Screen Ur Barbiturates Screen Ur Tricyclics Screen Ur Phencyclidine Scrn Ur Amphetamine Screen U Methamphetamines Scrn U Benzodiazepines Scrn Urine Cocaine Screen U Cannabinoids Screen Ethyl Alcohol PD Medical Decision Making - ED course Complexity details: reviewed results, re-evaluated patient, d/w patient, d/w family Reviewed Lab Results: Patient with normal renal function and no indications of infection in urine. Social Determinants of Health: None Drug Therapy Requiring Monitoring for Toxicity: IV narcotics ED course: Patient 67-year-old female presenting to the emergency department with right- sided flank pain. Afebrile, he medically stable on arrival to the emergency department. Abdominal exam benign.CT of the abdomen pelvis however demonstrates to large kidney stones with right-sided hydronephrosis. Labs demonstrate normal renal function and no indications of infection. Patient given hydromorphone and Toradol with significant improvement in symptoms. She does have a urologist with whom she follows at [facility]. I will discharge with medications for pain control and encourage careful follow-up with urology given the size of her stones. We also discussed return precautions prior to discharge. Departure - Departure Disposition: 01 Home, Self Care Clinical Impression: Kidney stone Instructions: ED Stone Renal W Colic Prescriptions: HYDROcod/ACETAM 5/325 [Clinton 5/325] 1 tab PO Q6HR PRN #10 tablet PRN Reason: Pain Ibuprofen [Motrin] 600 mg PO Q6H PRN #30 tab PRN Reason: Pain ONDANSETRON ODT Prepack 2 [ZOFRAN ODT Prepack 2] 4 mg TL Q6H #10 tablet Comments: Thank you for allowing us to care for you today at [facility]. Your prescriptions were sent electronically to [facility] in [place]. Today in the emergency department you are diagnosed with 2 right-sided kidney stones. The stones are on the larger side with the greatest dimension being 1 cm. Stones of this sort have an increased risk for complication and it is very important that you follow-up with your urologist at [facility] urology as soon as possible. Please drink plenty of fluids and get plenty of rest. If it anytime you have new or worsening symptoms such as worsening pain, fever, intractable nausea, vomiting, luz red blood in your urine or if you find yourself needing to urinate and cannot please return to the emergency department immediately for reevaluation.
[2022-08-10 07:01] VITALS: BP 125/65
--- NOTE | 2022-08-10 08:24 | CT Report ---
PROCEDURE: ABDOMEN/PELVIS W INDICATIONS: RLQ abd pain CONTRAST: 100 ML OMNI 300 TECHNIQUE: After the administration of IV contrast, 5 mm thick sections acquired from the diaphragms to the symp hysis. 5 mm thick coronal and sagittal reformats were acquired. For radiation dose reduction, the f ollowing was used: automated exposure control, adjustment of mA and/or kV according to patient size. COMPARISON: Correlation is made with the overlapping portions of chest CT, 07/26/2019 FINDINGS: Image quality: Excellent. ABDOMEN: Lung bases: Lung bases are clear. Heart size is normal. Solid organs: Water density liver cysts are seen. The liver demonstrates normal size and demonstrates no suspicious lesions. Gallbladder has been removed. Biliary system is non dilated. The spleen d emonstrates normal size and demonstrates no suspicious lesions. Pancreas enhances normally. No adre nal nodules. There is an obstructing stone seen within the right ureteropelvic junction, as on series 3 image 45 a nd on series 6 image 30, measuring 8 mm and 1300 Hounsfield units. Additional nonobstructing stones c an be seen within the right renal pelvis and within the right kidney that measure up to 1 cm and 1500 Hounsfield units. There is moderate to severe right-sided hydronephrosis. Right-sided perinephric fa t straining can be seen. A right kidney delayed nephrogram can be seen. The left kidney demonstrates no hydronephrosis or stones. Peritoneum and bowel: Bariatric surgery can be seen. Bowel loops demonstrate normal wall thickness and caliber. No free fluid or air. Nodes and vessels: No retroperitoneal or mesenteric adenopathy by size criteria. Aorta and inferior vena cava are normal in size. Atherosclerotic calcification is seen. Miscellaneous: There is a moderately sized fat-containing periumbilical hernia. PELVIS: Genitourinary: Bladder wall thickness is normal. The uterus demonstrates an unremarkable appearance for age. No adnexal masses are seen. Miscellaneous: No inguinal hernias or adenopathy. There is a perirectal clip seen, as on series 3 i mage 75 and on series 6 image 48. Bones: No suspicious bony lesions. No vertebral body compression fractures. Extensive lower lumbar spine postoperative change is seen. IMPRESSION: 8 mm obstructing stone within the right ureteropelvic junction, with associated right-si ded hydronephrosis, perinephric fat stranding, and a delayed nephrogram. Several nonobstructing right-sided kidney stones are seen. Additional findings: Liver cysts Cholecystectomy Bariatric surgery Fat-containing periumbilical hernia Extensive lower lumbar spine postoperative change Perirectal postoperative clip Note: No significant discrepancy from the preliminary report. Reviewed by: Quintin Seth MD on 08/10/2022 7:23 AM [facility] Approved by: Quintin Seth MD on 08/10/2022 7:23 AM [facility] Station ID: [id number]
== END 2022-08-10 06:30 | disposition home or self-care (01) ==
LOC: ED 02:35
DX: N13.2 Hydronephrosis with renal and ureteral calculous obstruction (principal); Z87.442 Personal history of urinary calculi
CPT/HCPCS: 36415; 74177; 80053; 80306; 80320; 81001; 83605; 83690; 85025; 93005; 96374; 96375; 99284; J1170; Q9967; 81003; 87086

== ENCOUNTER 2022-09-16 06:23 | Day surgery (SDC) | payer BC ==
[2022-09-16] MEDS ORDERED: LACTATED RINGERS 1,000 ML IV ONE (06:26)
[2022-09-16] MEDS ORDERED: PROPOFOL 500 MG/50 ML 500 MG/50 ML VIAL ONE (07:07)
[2022-09-16] MEDS ORDERED: LIDOCAINE-MPF 2% 5 ML VIAL ONE (07:08)
--- NOTE | 2022-09-16 07:12 | ANESTHESIA ---
Pre-Anesthesia VS, & Labs - Diagnosis family history of colon cancer, gerd - Procedure EGD, Colonoscopy Vital Signs: Temp Pulse Resp BP Pulse Ox O2 Flow Rate 36 C L 63 18 141/70 H 96 09/16/22 06:30 09/16/22 06:30 09/16/22 06:30 09/16/22 06:30 09/16/22 06:30 Height: 4 ft 11 in Weight (kg): 76 kg Body Mass Index: 33.8 BMI Classification: Obese - NPO >8 hours - Is Patient ?: No Home Medications and Allergies Home Medications: Ambulatory Orders Esomeprazole Magnesium [Nexium] 40 mg PO BID 09/16/22 PARoxetine HCL [Paxil] 20 mg PO DAILY 09/16/22 Potassium Citrate [Potassium Citrate ER] 10 meq PO DAILY 08/11/19 Medroxyprogesterone Acetate [Provera] 10 mg PO DAILY 08/10/22 Rosuvastatin Calcium [Crestor] 5 mg PO DAILY 08/10/22 Telmisartan 40 mg PO DAILY 08/10/22 estradioL [Estradiol] 1 applic TOP DAILY 08/10/22 Esomeprazole Magnesium [Nexium] 40 mg PO BID 09/16/22 PARoxetine HCL [Paxil] 20 mg PO DAILY 09/16/22 Allergies/Adverse Reactions: Allergies Allergy/AdvReac Type Severity Reaction Status Date / Time vancomycin Allergy Severe Jimenez-Johnsons Verified 08/10/22 02:49 Syndrome hepatitis B virus vaccine Allergy Unknown Verified 08/10/22 02:49 Anes History & Medical History - Anesthetic History Anesthesia Complications: reports: No previous complications - Medical History Cardiovascular: reports: Hypertension, High cholesterol, Murmur Pulmonary: reports: Sleep apnea Gastrointestinal: reports: GERD, Hiatal hernia, Colon polyps Neuro: reports: None Musculoskeletal: reports: Chronic back pain Endocrine/Autoimmune: reports: None Blood Disorders: reports: None Skin: reports: None Smoking Status: Never smoker - Surgical History General: reports: Hiatal hernia repair, EGD Eyes Ears Nose Throat (EENT): reports: Tonsil/Adenoidectomy Gynecologic: reports: section, Tubal ligation Orthopedic: reports: Knee replacement, Carpal Tunnel surgery, Spine surgery, Other Dermatologic: reports: Skin grafts Exam General: Alert, Oriented x3 Dental: WNL Mouth Opening: Greater than 4 Fingerbreadths Neck Mobility: Normal Mallampati classification: II Thyromental Distance: greater than 6 cm Respiratory: Lungs clear Cardiovascular: Regular rate, Normal S1, Normal S2 Plan Anesthesia Type: Total IV Consent for Procedure(s) Verified and Reviewed: Yes Code Status: Attempt Resuscitation ASA classification: 2-Mild systemic disease Is this case an emergency?: No
[2022-09-16] MEDS ORDERED: SIMETHICONE 40 MG/0.6 ML 30 ML BOTTLE PO ONE (08:45)
[2022-09-16] MEDS ORDERED: LACTATED RINGERS 500 ML IV ONE (09:08)
[2022-09-16 09:14] VITALS: BP 90/66
--- NOTE | 2022-09-16 09:32 | ANESTHESIA POST OP EVALUATION ---
Anesthesia Post Eval - Post Anesthesia Eval Vitals: Last Vital Signs Temp 36.0 C L 09/16/22 09:08 Pulse 58 L 09/16/22 09:12 Resp 16 09/16/22 09:12 BP 90/66 09/16/22 09:12 Pulse Ox 99 09/16/22 09:12 O2 Flow Rate CV Function Including HR & BP: Stable Pain Control: Satisfactory Nausea & Vomiting: Negative Mental Status: Baseline Respiratory Status: Airway Patent Hydration Status: Satisfactory Anesthesia Complications: None
[2022-09-16] MEDS ORDERED: PROPOFOL 200 MG/20 ML VIAL IVP ONE (09:43)
== END 2022-09-16 06:24 | disposition home or self-care (01) ==
LOC: SDS 06:23
PROVIDERS: ATTEND Surgery
PROC: 0D748ZZ Dilation of Esophagogastric Junction, Via Natural or Artificial Opening Endoscopic (ICD-10-PCS; 2022-09-16)
PROC: 0DB58ZX Excision of Esophagus, Via Natural or Artificial Opening Endoscopic, Diagnostic (ICD-10-PCS; principal; 2022-09-16 07:30)
PROC: 0DB78ZX Excision of Stomach, Pylorus, Via Natural or Artificial Opening Endoscopic, Diagnostic (ICD-10-PCS; 2022-09-16 07:30)
DX: K22.2 Esophageal obstruction (principal); R13.10 Dysphagia, unspecified; Z80.0 Family history of malignant neoplasm of digestive organs; Z87.19 Personal history of other diseases of the digestive system; K21.9 Gastro-esophageal reflux disease without esophagitis; E66.9 Obesity, unspecified; Z68.33 Body mass index [BMI] 33.0-33.9, adult; G47.33 Obstructive sleep apnea (adult) (pediatric)
CPT/HCPCS: 43239; 43249; A9270; J7120

== ENCOUNTER 2022-09-22 11:45 | Outpatient (CLI) | payer BC | END 2022-09-22 12:00 | disposition home or self-care (01) | LOC: LAB.N 11:45 | PROVIDERS: ATTEND Registered Nurse | DX: R82.79 Other abnormal findings on microbiological examination of urine (principal) | CPT/HCPCS: 87086 ==

== ENCOUNTER 2022-10-02 09:25 | Outpatient (CLI) | payer BC ==
[2022-10-02 12:03] LABS: BASOPHILS % (AUTO) 0.6 %; EOSINOPHILS # (AUTO) 0.1 10^3/uL (0.0-0.7); EOSINOPHILS % (AUTO) 0.8 %; HCT - HEMATOCRIT 41.1 % (37.0-47.0); HGB - HEMOGLOBIN 12.9 g/dL (12.0-16.0); LYMPHOCYTES # (AUTO) 1.6 10^3/uL (1.5-3.5); LYMPHOCYTES % (AUTO) 24.6 %; MEAN CORPUSCULAR HEMOGLOBIN 26.1 pg (27.0-31.0); MEAN CORPUSCULAR HGB CONC 31.4 g/dL (32.0-36.0); MEAN PLATELET VOLUME 11.2 fL (7.9-10.8); MONOCYTES # (AUTO) 0.4 10^3/uL (0.0-1.0); MONOCYTES % (AUTO) 6.6 %; NEUTROPHILS # (AUTO) 4.5 10^3/uL (1.5-6.6); NEUTROPHILS % (AUTO) 67.2 %; PLT - PLATELET COUNT 279 10^3/uL (130-450); RED BLOOD COUNT 4.95 10^6/uL (4.20-5.40); RED CELL DISTRIBUTION WIDTH 15.6 % (12.0-15.0); WHITE BLOOD COUNT 6.6 x10^3/uL (4.8-10.8)
[2022-10-02 12:59] LABS: CALCIUM 9.8 mg/dL (8.5-10.3); CREATININE 0.6 mg/dL (0.4-1.0); MAGNESIUM 2.4 mg/dL (1.7-2.8); POTASSIUM 4.3 mmol/L (3.5-5.0)
== END 2022-10-02 09:26 | disposition home or self-care (01) ==
LOC: LAB.N 09:25
PROVIDERS: ATTEND Physician Assistant
DX: R42 Dizziness and giddiness (principal)
CPT/HCPCS: 36415; 80048; 83735; 84443; 85025

== ENCOUNTER 2022-11-25 16:27 | Outpatient (CLI) | payer BC ==
--- NOTE | 2022-11-25 17:08 | XRAY Report ---
PROCEDURE: Hip w/Pelvis 2-3V LT INDICATIONS: HIP PAIN,LEFT CHRONIC TECHNIQUE: AP pelvis with lateral view(s) of the left hip(s). COMPARISON: None. FINDINGS: Bones: No fractures or dislocations. No suspicious bony lesions. Definite osteophytes and possibl e narrowing of joint space. Dystrophic proximal left femoral shaft and prior ghost tract of a right i ntramedullary femoral phyllis. Findings are likely posttraumatic. Soft tissues: No suspicious soft tissue calcifications or masses. IMPRESSION: No acute bony abnormality. Kellgren-Leighton scale of osteoarthritis: Grade 1-2: mild osteoarthritis. Reviewed by: Rasheed Webster on 11/25/2022 5:07 PM PDT Approved by: Rasheed Webster on 11/25/2022 5:07 PM PDT Station ID: [id number]
== END 2022-11-25 16:28 | disposition home or self-care (01) ==
LOC: DI 16:27
PROVIDERS: ATTEND Physician Assistant
DX: M16.12 Unilateral primary osteoarthritis, left hip (principal)

== ENCOUNTER 2022-12-04 16:17 | Outpatient (CLI) | payer BC ==
--- NOTE | 2022-12-04 18:09 | CT Report ---
PROCEDURE: LOWER EXTREMITY WO - LT INDICATIONS: LEFT HIP/FEMUR PAIN TECHNIQUE: Noncontrast 1-mm axial sections of the left hip were acquired, with coronal and sagittal reformats. For radiation dose reduction, the following was used: automated exposure control, adjustment of mA a nd/or kV according to patient size. COMPARISON: Left hip radiograph dated 11/25/2022. FINDINGS: Image quality: Excellent. Bones: Old healed left proximal femoral shaft fracture is seen with chronic appearing deformity of t he femoral shaft and tract from prior intramedullary phyllis placement in femoral shaft. Moderate left hi p joint osteoarthritic changes are seen with joint space narrowing, subchondral sclerosis and lateral marginal osteophyte formation. No acute fracture or dislocation. No evidence of avascular necrosis o f femoral head. Prominence of superior anterior left femoral head neck junction is seen with subcorti katrin cystic area which can be seen associated with cam-type femoral acetabular impingement. Soft tissues: There is no significant left hip joint effusion or calcified intra-articular loose bod ies. No abnormal soft tissue calcifications. Visualized pelvis shows no free fluid of free air. Irreg ularity involving superior anterior left acetabulum which can be seen associated with superior anteri or left hip labral tear suggest clinical correlation. Impression: 1. Old healed left proximal femoral shaft fracture with evidence of prior internal fixation. No acute fracture or dislocation is seen. 2. Moderate left hip joint osteoarthritis. No evidence of avascular necrosis of femoral head. Promine nce of superior anterior left femoral head neck junction which can be seen associated with cam-type f emoral acetabular impingement. 3. No gross left hip soft tissue abnormalities. Questionable irregularity involving superior anterior left acetabulum which could represent left hip labral tear in this area. Clinical correlation is rec ommended. Reviewed by: Jovi Olmos MD on 12/04/2022 6:08 PM PDT Approved by: Jovi Olmos MD on 12/04/2022 6:08 PM PDT Station ID: [id number]
== END 2022-12-04 16:18 | disposition home or self-care (01) ==
LOC: DI 16:17
PROVIDERS: ATTEND Registered Nurse
DX: S72.302D Unspecified fracture of shaft of left femur, subsequent encounter for closed fracture with routine healing (principal); M16.12 Unilateral primary osteoarthritis, left hip

== ENCOUNTER 2023-01-15 15:51 | Outpatient (CLI) | payer BC ==
--- NOTE | 2023-01-16 10:24 | CT Report ---
PROCEDURE: ABDOMEN/PELVIS WO INDICATIONS: NEPHROLITHIASIS TECHNIQUE: A CT scan of the abdomen and pelvis was performed without the use of intravenous contrast. Images we re recorded and evaluated at appropriate window settings. Reformats: coronal and sagittal. For radiat ion dose reduction, the following was used: automated exposure control, adjustment of mA and/or kV ac cording to patient size. COMPARISON: Report from 08/10/2022. FINDINGS: Image quality: Excellent. Lung bases and heart: 2 mm solid nodule, right upper lobe (series 4, image 1). Moderate coronary calc ifications for age. Liver: Fluid attenuating hepatic cysts. Gallbladder and biliary tree: Surgically absent. No biliary dilation, accounting for post-cholecystec emil state. Spleen: No splenomegaly. Pancreas: No pancreatic ductal dilation. Adrenals: No adrenal nodule. Kidneys and ureters: No hydronephrosis. No renal cystic lesion which requires follow up. No solid mas s. Small burden of bilateral renal stones, largest measuring 7 mm on the right (1216 Hounsfield unit) , and punctate on the left. Right-sided renal sinus cyst. Bowel and peritoneum: No bowel distension. No pathologic free fluid. Prior gastric surgery. 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 No significant diverticular disease. Lymph nodes: No central or retroperitoneal adenopathy. Vessels: No infrarenal aortic aneurysm. PELVIS Reproductive organs: Unremarkable. Bladder: No wall thickness, accounting for underdistention. Pelvic lymph nodes: No pelvic adenopathy by size criteria. Bones: No aggressive osseous abnormality. Posterior surgical fusion of the lumbar spine. Grade 1 ante rolisthesis of L4 on L5. Low bone mineralization by Hounsfield criteria. Other: No significant ventral or inguinal hernia. IMPRESSION: No hydronephrosis or obstructing renal stone. Small burden of bilateral nonobstructing renal stones, largest measuring 7 mm on the right and punctate on the left. Colonic interposition between the liver and hemidiaphragm, which can cause right upper quadrant pain. 2 mm solid nodule in the right upper lobe. Consider 12 month follow-up if this patient is at high ris k for developing lung cancer, per Fleischner Society guidelines. Other chronic findings as above. Reviewed by: Rasheed Webster on 01/16/2023 10:23 AM PDT Approved by: Rasheed Webster on 01/16/2023 10:23 AM PDT Station ID: [id number]
== END 2023-01-15 15:52 | disposition home or self-care (01) ==
LOC: DI 15:51
PROVIDERS: ATTEND Physician Assistant Medical
DX: N20.0 Calculus of kidney (principal); R91.1 Solitary pulmonary nodule

== ENCOUNTER 2023-01-16 12:32 | Outpatient (CLI) | payer BC ==
[2023-01-16 17:42] LABS: BASOPHILS % (AUTO) 0.3 %; EOSINOPHILS % (AUTO) 0.3 %; HCT - HEMATOCRIT 38.9 % (37.0-47.0); HGB - HEMOGLOBIN 12.1 g/dL (12.0-16.0); LYMPHOCYTES % (AUTO) 35.1 %; MEAN CORPUSCULAR HGB CONC 31.1 g/dL (32.0-36.0); MEAN CORPUSCULAR VOLUME 83.5 fL (81.0-99.0); MEAN PLATELET VOLUME 11.9 fL (7.9-10.8); MONOCYTES # (AUTO) 0.5 10^3/uL (0.0-1.0); MONOCYTES % (AUTO) 8.5 %; NEUTROPHILS # (AUTO) 3.2 10^3/uL (1.5-6.6); NEUTROPHILS % (AUTO) 55.6 %; PLT - PLATELET COUNT 249 10^3/uL (130-450); RED BLOOD COUNT 4.66 10^6/uL (4.20-5.40); RED CELL DISTRIBUTION WIDTH 15.6 % (12.0-15.0); WHITE BLOOD COUNT 5.8 x10^3/uL (4.8-10.8)
[2023-01-16 17:53] LABS: CREATININE 0.7 mg/dL (0.4-1.0)
== END 2023-01-16 12:33 | disposition home or self-care (01) ==
LOC: LAB.N 12:32
PROVIDERS: ATTEND Plastic Surgery
DX: Z01.818 Encounter for other preprocedural examination (principal)
CPT/HCPCS: 36415; 82565; 84520; 85025

== ENCOUNTER 2023-03-23 16:30 | Outpatient (CLI) | payer BC ==
[2023-03-23 21:05] LABS: BASOPHILS % (AUTO) 0.5 %; EOSINOPHILS # (AUTO) 0.1 10^3/uL (0.0-0.7); EOSINOPHILS % (AUTO) 1.8 %; HCT - HEMATOCRIT 38.2 % (37.0-47.0); HGB - HEMOGLOBIN 11.9 g/dL (12.0-16.0); LYMPHOCYTES # (AUTO) 1.9 10^3/uL (1.5-3.5); LYMPHOCYTES % (AUTO) 43.9 %; MEAN CORPUSCULAR HEMOGLOBIN 26.3 pg (27.0-31.0); MEAN CORPUSCULAR HGB CONC 31.2 g/dL (32.0-36.0); MEAN CORPUSCULAR VOLUME 84.5 fL (81.0-99.0); MEAN PLATELET VOLUME 11.7 fL (7.9-10.8); MONOCYTES # (AUTO) 0.5 10^3/uL (0.0-1.0); MONOCYTES % (AUTO) 10.6 %; NEUTROPHILS # (AUTO) 1.9 10^3/uL (1.5-6.6); PLT - PLATELET COUNT 239 10^3/uL (130-450); RED BLOOD COUNT 4.52 10^6/uL (4.20-5.40); RED CELL DISTRIBUTION WIDTH 16.2 % (12.0-15.0); WHITE BLOOD COUNT 4.3 x10^3/uL (4.8-10.8)
[2023-03-23 21:19] LABS: ALBUMIN/GLOBULIN RATIO 1.6 (1.0-2.2); BILIRUBIN,TOTAL 0.4 mg/dL (0.2-1.0); CALCIUM 8.9 mg/dL (8.5-10.3); CREATININE 0.6 mg/dL (0.4-1.0); MAGNESIUM 2.3 mg/dL (1.7-2.8); PHOSPHORUS 2.7 mg/dL (2.5-4.6); POTASSIUM 3.8 mmol/L (3.5-5.0); TOTAL PROTEIN 6.5 g/dL (6.7-8.2)
[2023-03-23 21:22] LABS: ESTIMATED AVERAGE GLUCOSE 120 mg/dL (70-100); HEMOGLOBIN A1c% 5.8 % (4.27-6.07)
[2023-03-23 21:29] LABS: THYROID STIMULATING HORMONE 0.45 uIU/mL (0.34-5.60)
[2023-03-24 01:46] LABS: CRP - C-REACTIVE PROTEIN 0.5 mg/dL (<0.5)
[2023-03-25 09:10] LABS: CALCIUM IONIZED SERUM 4.7 mg/dL (4.5-5.6)
== END 2023-03-23 16:45 | disposition home or self-care (01) ==
LOC: LAB.N 16:30
PROVIDERS: ATTEND Registered Nurse
DX: R20.2 Paresthesia of skin (principal)
CPT/HCPCS: 36415; 80053; 82306; 82330; 82607; 83036; 83735; 84100; 84443; 85025; 86140

== ENCOUNTER 2023-05-12 18:34 | Outpatient (CLI) | payer BC | END 2023-05-12 18:35 | disposition critical access hospital (66) | LOC: EMS 18:34 | DX: R07.9 Chest pain, unspecified (principal) | CPT/HCPCS: A0425; A0429 ==

== ENCOUNTER 2023-05-12 18:55 | Emergency (ER) | payer BC ==
[2023-05-12 19:06] VITALS: BP 138/74; O2SAT 100
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
[2023-05-12 19:22] LABS: BASOPHILS % (AUTO) 0.7 %; EOSINOPHILS # (AUTO) 0.1 10^3/uL (0.0-0.7); EOSINOPHILS % (AUTO) 2.9 %; HCT - HEMATOCRIT 36.6 % (37.0-47.0); HGB - HEMOGLOBIN 11.4 g/dL (12.0-16.0); LYMPHOCYTES # (AUTO) 1.8 10^3/uL (1.5-3.5); LYMPHOCYTES % (AUTO) 43.9 %; MEAN CORPUSCULAR HGB CONC 31.1 g/dL (32.0-36.0); MEAN CORPUSCULAR VOLUME 83.6 fL (81.0-99.0); MEAN PLATELET VOLUME 10.4 fL (7.9-10.8); MONOCYTES # (AUTO) 0.4 10^3/uL (0.0-1.0); MONOCYTES % (AUTO) 9.5 %; NEUTROPHILS # (AUTO) 1.8 10^3/uL (1.5-6.6); NEUTROPHILS % (AUTO) 42.8 %; PLT - PLATELET COUNT 218 10^3/uL (130-450); RED BLOOD COUNT 4.38 10^6/uL (4.20-5.40); RED CELL DISTRIBUTION WIDTH 14.9 % (12.0-15.0); WHITE BLOOD COUNT 4.2 x10^3/uL (4.8-10.8)
[2023-05-12 19:39] LABS: ALBUMIN 3.9 g/dL (3.2-5.5); BILIRUBIN,TOTAL 0.5 mg/dL (0.2-1.0); CALCIUM 9.2 mg/dL (8.5-10.3); CREATININE 0.6 mg/dL (0.6-1.3); POTASSIUM 3.6 mmol/L (3.5-4.5); TOTAL PROTEIN 5.9 g/dL (6.4-8.9)
[2023-05-12 19:45] LABS: TROPONIN I HIGH SENSITIVITY 2.7 ng/L (2.3-14.8)
--- NOTE | 2023-05-12 19:48 | XRAY Report ---
PROCEDURE: Chest 1 View X-Ray INDICATIONS: Chest pain TECHNIQUE: One view of the chest was acquired. COMPARISON: History of 01/18/2019. FINDINGS: Surgical changes and devices: None. Lungs and pleura: No pleural effusions or pneumothorax. Lungs are clear. Patient is slightly rotate d towards the left. Mediastinum: Mediastinal contours appear normal. Heart size is normal. Bones and chest wall: No suspicious bony lesions. Overlying soft tissues appear unremarkable. IMPRESSION: No acute cardiopulmonary process. Reviewed by: Mitch Gregg MD on 05/12/2023 7:47 PM PDT Approved by: Mitch Gregg MD on 05/12/2023 7:47 PM PDT Station ID: [id number]
== END 2023-05-12 20:03 | disposition home or self-care (01) ==
LOC: EDUNIT# → ED 18:55
DX: R07.89 Other chest pain (principal)
CPT/HCPCS: 36415; 80053; 83690; 84484; 85025; 99283; 99284

== ENCOUNTER 2023-08-19 20:50 | Outpatient (CLI) | payer BC ==
--- NOTE | 2023-08-20 12:04 | Ultrasound Report ---
PROCEDURE: Abdomen Complete INDICATIONS: ABD PAIN TECHNIQUE: Real-time scanning was performed of the abdominal and retroperitoneal organs, with image documentatio n. COMPARISON: None. FINDINGS: Liver: Coarsened liver echogenicity. Benign hepatic cyst measuring 1.6 cm. Gallbladder: Absent. Biliary ducts: Intrahepatic bile ducts are non-dilated. Extrahepatic bile duct caliber measures 6 m m. Normal is 6-7 mm or less in diameter, or 10 mm or less post-cholecystectomy. Pancreas: Not well visualized due to overlying bowel gas. Spleen: Spleen is normal in size and homogeneous in echotexture. Kidneys: Kidneys are normal in size and echotexture. Right kidney measures 9.7 cm long; left kidney measures 9.9 cm long. Bilateral nonobstructing nephrolithiasis, measuring 8 mm on the left and 7 mm on the right. No solid masses. No complex renal cystic lesions which require follow-up. Aorta: Visualized aorta is normal in caliber at less than 3 cm. Iliacs: Proximal common iliac arteries are normal in caliber at less than 2.5 cm. IVC: Intrahepatic inferior vena cava is patent. Miscellaneous: Targeted ultrasound of the abdominal wall demonstrates scar tissue with posterior att enuation. IMPRESSION: Targeted ultrasound of the abdominal wall demonstrates scar tissue with posterior attenuation. Coarsened liver echogenicity, suggestive of chronic parenchymal disease. Bilateral nonobstructing nephrolithiasis. Reviewed by: Rasheed Webster MD on 08/20/2023 12:03 PM PST Approved by: Rasheed Webster MD on 08/20/2023 12:03 PM PST Station ID: [id number]
== END 2023-08-19 20:51 | disposition home or self-care (01) ==
LOC: DI 20:50
PROVIDERS: ATTEND Registered Nurse
DX: R10.30 Lower abdominal pain, unspecified (principal); N20.0 Calculus of kidney

== ENCOUNTER 2023-09-01 08:00 | Outpatient (CLI) | payer BC ==
--- NOTE | 2023-09-01 17:41 | XRAY Report ---
PROCEDURE: Cervical Spine 2-3V INDICATIONS: NECK PAIN TECHNIQUE: 3 view(s) of the cervical spine were acquired. COMPARISON: None. FINDINGS: Bones: No fractures or dislocations to the C7-T1 level. The lateral masses of C1 appear intact on t he odontoid view. No suspicious bony lesions. Anterior fusion is present C3-C6. Hardware is intact without evidence of hardware fracture or periprosthetic lucency to suggest loosening. Soft tissues: No prevertebral soft tissue swelling. IMPRESSION: C3-C6 fusion as above. Reviewed by: Yamileth Aguilar MD on 09/01/2023 5:40 PM PST Approved by: Yamileth Aguilar MD on 09/01/2023 5:40 PM PST Station ID: [id number]
== END 2023-09-01 23:59 | disposition home or self-care (01) ==
LOC: DI.N 08:00
PROVIDERS: ATTEND Nurse Practitioner
DX: M54.2 Cervicalgia (principal); Z98.1 Arthrodesis status

== ENCOUNTER 2023-12-01 15:00 | Outpatient (CLI) | payer BC ==
[2023-12-01 17:48] LABS: BASOPHILS % (AUTO) 0.8 %; EOSINOPHILS # (AUTO) 0.1 10^3/uL (0.0-0.7); EOSINOPHILS % (AUTO) 2.1 %; HCT - HEMATOCRIT 39.3 % (37.0-47.0); HGB - HEMOGLOBIN 11.9 g/dL (12.0-16.0); LYMPHOCYTES # (AUTO) 2.1 10^3/uL (1.5-3.5); MEAN CORPUSCULAR HEMOGLOBIN 24.5 pg (27.0-31.0); MEAN CORPUSCULAR HGB CONC 30.3 g/dL (32.0-36.0); MEAN PLATELET VOLUME 10.6 fL (7.9-10.8); MONOCYTES # (AUTO) 0.4 10^3/uL (0.0-1.0); NEUTROPHILS # (AUTO) 2.1 10^3/uL (1.5-6.6); NEUTROPHILS % (AUTO) 43.9 %; PLT - PLATELET COUNT 255 10^3/uL (130-450); RED BLOOD COUNT 4.85 10^6/uL (4.20-5.40); RED CELL DISTRIBUTION WIDTH 17.4 % (12.0-15.0); WHITE BLOOD COUNT 4.8 x10^3/uL (4.8-10.8)
[2023-12-01 18:15] LABS: THYROID STIMULATING HORMONE 0.39 uIU/mL (0.34-5.60)
[2023-12-01 18:30] LABS: ALBUMIN 4.2 g/dL (3.2-5.5); ALBUMIN/GLOBULIN RATIO 1.6 (1.0-2.2); ALKALINE PHOSPHATASE 72 IU/L (42-121); ALT ALANINE AMINOTRANSFERASE 11 IU/L (10-60); AST ASPARTATE AMINOTRANSFERASE 15 IU/L (10-42); BILIRUBIN,TOTAL 0.7 mg/dL (0.2-1.0); BUN - BLOOD UREA NITROGEN 15 mg/dL (6-20); CALCIUM 9.9 mg/dL (8.5-10.3); CARBON DIOXIDE - CO2 27 mmol/L (21-32); CHLORIDE 104 mmol/L (101-111); CHOL/HDL RATIO 2.3 (<4.4); CHOLESTEROL 167 mg/dL; CREATININE 0.5 mg/dL (0.6-1.3); GFR - MDRD 122 (>89); GLUCOSE 79 mg/dL (74-104); HDL CHOLESTEROL 72 mg/dL; LDL CHOLESTEROL,CALCULATED 83 mg/dL; LDL/HDL RATIO 1.2 (<4.4); POTASSIUM 3.6 mmol/L (3.5-4.5); SODIUM 138 mmol/L (135-145); TOTAL PROTEIN 6.9 g/dL (6.4-8.9); TRIGLYCERIDES 59 mg/dL (48-352); VLDL CHOLESTEROL 12 mg/dL
== END 2023-12-01 15:01 | disposition home or self-care (01) ==
LOC: LAB.N 15:00
PROVIDERS: ATTEND Nurse Practitioner Family
DX: E78.5 Hyperlipidemia, unspecified (principal); E04.1 Nontoxic single thyroid nodule
CPT/HCPCS: 36415; 80053; 80061; 83721; 84443; 85025

== ENCOUNTER 2023-12-02 15:06 | Outpatient (CLI) | payer BC ==
--- NOTE | 2023-12-04 09:52 | Mammography Report ---
BILATERAL DIGITAL SCREENING MAMMOGRAM 3D/2D: 12/02/2023 CLINICAL: Routine screening. Family history of breast cancer. Comparison is made to exams dated: 07/14/2022 mammogram - [facility], 06/01/2020 ma mmogram - [facility], 02/23/2014 mammogram, 07/19/2012 mammogram, 06/07/2011 mammogram - [facility], and 11/26/2005 mammogram - [facility]. Both breasts are almost entirely fatty (category a/<25% glandular tissue). No significant masses, calcifications, or other findings are seen in either breast. There has been no significant interval change. IMPRESSION: NEGATIVE There is no mammographic evidence of malignancy. A 1 year screening mammogram is recommended. Based on the Tyrer Cuzick model (a risk assessment model) the patient's lifetime risk is 5.2% and her 10 year risk is 3.0%. According to the ACR, ACS, and NCCN guidelines, an annual breast MRI exam kylah g with mammogram is recommended if the patient's lifetime risk is 20% or greater. This exam was interpreted at Station ID: [id number]. NOTE: For mammograms, a report in lay terms will be sent to the patient. Approximately 15% of breast malignancies will not be visualized mammographically. In the management of a palpable breast mass, a negative mammogram must not discourage biopsy of a clinically suspicious lesion. Electronically Signed By: Darlyn nina/abbi:12/03/2023 11:18:46 letter sent: No_Letter ACR BI-RADS Category 1: Negative 3341F PARENCHYMAL PATTERN: (F) - The breast(s) demonstrate(s) diffuse fatty replacement. BI-RADS CATEGORY: (1) - 1 RECOMMENDATION: (ANNUAL) - Recommend routine annual screening mammography. [id number] 1 year screening LATERALITY: (B)
== END 2023-12-02 15:07 | disposition home or self-care (01) ==
LOC: DI.N 15:06
PROVIDERS: ATTEND Nurse Practitioner Family
DX: Z12.31 Encounter for screening mammogram for malignant neoplasm of breast (principal); Z80.3 Family history of malignant neoplasm of breast

== ENCOUNTER 2023-12-10 17:03 | Outpatient (CLI) | payer BC ==
[~2023-12-10 17:03] MED LIST changes: -GADOBUTROL 15 MMOL/15 ML VIAL ONE; +GADOTERATE MEGLUMINE 7.5 MMOL/15 ML VIAL ONE
--- NOTE | 2023-12-11 19:12 | Ultrasound Report ---
PROCEDURE: Soft Tissue Head or Neck INDICATIONS: THYROID NOD TECHNIQUE: Real-time scanning was performed of the thyroid gland, with image documentation. COMPARISON: 03/08/2021 FINDINGS: Right: Thyroid lobe measures 4.6 x 1.2 x 1.2 cm. Left: Thyroid lobe measures 4.2 x 1.3 x 0.9 cm Isthmus: 0.2 cm thick. Echotexture: Homogeneous. Nodule number: One Location: Right mid Size: 0.8 x 0.4 x 0.6 cm, previously 0.7 x 0.7 x 0.3 cm. Composition: Solid. Echogenicity: Hypoechoic. Shape: wider than tall (0 points). Margins: Smooth (0 points). Echogenic foci: Macrocalcification (1 point). Total points: 5 ACR TI-RADS category: 4 Nodule number: Two Location: Location Size: 0.7 x 0.4 x 0.6 cm, previously 0.7 x 0.5 x 0.4 cm. Composition: Solid. Echogenicity: Hypoechoic. Shape: wider than tall (0 points). Margins: Smooth (0 points). Echogenic foci: Macrocalcification. Total points: 5 ACR TI-RADS category: 4 Nodule number: Three Location: Left superior Size: 0.8 x 1.0 x 0.6 cm, previously 1.0 x 1.3 x 0.8 cm. Composition: Solid. Echogenicity: Hypoechoic. Shape: wider than tall (0 points). Margins: Smooth (0 points). Echogenic foci: None (0 points). Total points: 4 ACR TI-RADS category: 4 Nodule number: Four Location: Left inferior Size: 1.0 x 1.2 x 0.6 cm, previously 1.1 x 0.7 x 0.7 cm. Composition: Solid. Echogenicity: Hypoechoic. Shape: wider than tall (0 points). Margins: Smooth (0 points). Echogenic foci: Macrocalcification. Total points: 5 ACR TI-RADS category: 4 IMPRESSION: Stable category 4 thyroid nodules. Continue follow-up schedule as below ACR TI-RADS definitions and recommendations: TI-RADS 1 (benign): 0 points. FNA not needed. TI-RADS 2 (not suspicious): 2 points. FNA not needed. TI-RADS 3 (mildly suspicious): 3 points. "FNA if 2.5 cm or larger, follow up if 1.5 cm or larger (at 1, 3, and 5 years). TI-RADS 4 (moderately suspicious): 4-6 points. "FNA if 1.5 cm or larger, follow up if 1 cm or larger (at 1, 2, 3, and 5 years). TI-RADS 5 (highly suspicious): 7 points or more. "FNA if 1 cm or larger, follow up if 0.5 cm or larger (every year for 5 years). Reviewed by: Maury Grajeda MD on 12/11/2023 6:10 PM AKANDREY Approved by: Maury Grajeda MD on 12/11/2023 6:10 PM AKDT Station ID: [id number]
== END 2023-12-10 17:04 | disposition home or self-care (01) ==
LOC: DI 17:03
PROVIDERS: ATTEND Nurse Practitioner Family
DX: E04.2 Nontoxic multinodular goiter (principal)

== ENCOUNTER 2023-12-29 15:37 | Outpatient (CLI) | payer BC ==
[2023-12-29] MEDS: GADOTERATE MEGLUMINE 7.5 MMOL/15 ML VIAL IVP ONE (17:44)
--- NOTE | 2023-12-29 19:49 | MRI Report ---
PROCEDURE: Brain W/WO INDICATIONS: MEMORY DEFICIT, ISCHEMIC BRAIN DAMAGE CONTRAST: 14.4ml clariscan TECHNIQUE: Noncontrast axial T1 spin echo, axial T2 fast spin echo, sagittal and axial FLAIR, coronal T2 fast sp in echo, axial gradient echo, axial diffusion and ADC through the brain. After the administration of contrast, axial and coronal T1 spin echo with fat saturation through the brain. COMPARISON: MRI brain 05/06/2017 FINDINGS: Image quality: Excellent. CSF spaces: Basal cisterns are patent. No extra-axial fluid collections. Ventricles are normal in size and shape. Brain: No midline shift. No intracranial bleeds or masses. No abnormal intracranial enhancement. There is cerebral volume loss for age. There is periventricular white matter chronic small vessel is chemic change. The brainstem appears normal. Diffusion-weighted images demonstrate no acute ischemi c insults. No chronic ischemic insults. Normal intravascular flow voids are present. Skull and face: Calvarial marrow is normal in signal. Orbits appear normal. Sinuses: Sinuses and mastoids appear clear. IMPRESSION: 1. No acute intracranial process. 2. Moderate atrophy and chronic microvascular ischemic changes. Reviewed by: Yamileth Aguilar MD on 12/29/2023 7:48 PM PDT Approved by: Yamileth Aguilar MD on 12/29/2023 7:48 PM PDT Station ID: [id number]
== END 2023-12-29 15:38 | disposition home or self-care (01) ==
LOC: DI 15:37
PROVIDERS: ATTEND Nurse Practitioner Family
DX: I67.82 Cerebral ischemia (principal); R41.3 Other amnesia

== ENCOUNTER 2023-12-30 11:29 | Outpatient (CLI) | payer BC ==
--- NOTE | 2023-12-30 12:25 | XRAY Report ---
PROCEDURE: Ankle 3+V LT INDICATIONS: ANKLE PAIN, LEFT TECHNIQUE: 3 views of the ankle were acquired. COMPARISON: 01/12/2014. FINDINGS: Bones: Chronic fracture deformities of the distal tibia and fibula. Ankle arthrodesis is present. Di stal fibula is absent. Soft tissues: No tibiotalar joint effusion. Achilles tendon appears normal. Stable soft tissue katrin cifications of the dorsal ankle. IMPRESSION: Postsurgical changes of the ankle, without acute bony abnormality. Reviewed by: Rasheed Webster MD on 12/30/2023 12:23 PM PDT Approved by: Rasheed Webster MD on 12/30/2023 12:23 PM PDT Station ID: [id number]
== END 2023-12-30 12:09 | disposition home or self-care (01) ==
LOC: DI.N 11:29
PROVIDERS: ATTEND Physician Assistant
DX: M25.572 Pain in left ankle and joints of left foot (principal)

== ENCOUNTER 2024-01-11 15:15 | Outpatient (CLI) | payer BC ==
--- NOTE | 2024-01-11 16:27 | XRAY Report ---
PROCEDURE: Shoulder 2+V LT INDICATIONS: PAIN IN LEFT SHOULDER TECHNIQUE: 3 views of the shoulder were acquired. COMPARISON: None. FINDINGS: Bones: No fractures or dislocations. No suspicious bony lesions. Visualized ribs appear intact. Moderate acromioclavicular degenerative narrowing. Soft tissues: No suspicious soft tissue calcifications. The visualized lungs are within normal limi ts. IMPRESSION: Moderate acromioclavicular degenerative narrowing. Reviewed by: Yamileth Aguilar MD on 01/11/2024 4:26 PM PDT Approved by: Yamileth Aguilar MD on 01/11/2024 4:26 PM PDT Station ID: [id number]
== END 2024-01-11 15:30 | disposition home or self-care (01) ==
LOC: DI.N 15:15
PROVIDERS: ATTEND Nurse Practitioner
DX: M19.012 Primary osteoarthritis, left shoulder (principal)

== ENCOUNTER 2024-02-08 14:28 | Outpatient (CLI) | payer BC ==
--- NOTE | 2024-02-08 19:15 | XRAY Report ---
PROCEDURE: Ankle 3+V LT INDICATIONS: ANKLE PAIN, LEFT TECHNIQUE: 3 views of the ankle were acquired. COMPARISON: 12/30/2023. FINDINGS: Bones: Expected appearance of orthopedic surgical hardware. Remote resection of the distal fibula an d tibiotalar fusion. Surgical hardware is intact. No evidence of hardware failure or loosening. There is also mature bony fusion. Diffuse osteopenia. No suspicious bony lesions. Soft tissues: No tibiotalar joint effusion. Achilles tendon appears normal. IMPRESSION: Diffuse osteopenia. Intact surgical hardware, status post tibiotalar fusion and resection of the dist al fibula. There is also mature bony fusion. There is diffuse osteopenia. Reviewed by: Chad Lima MD on 02/08/2024 7:14 PM PDT Approved by: Chad Lima MD on 02/08/2024 7:14 PM PDT Station ID: [id number]
== END 2024-02-08 14:29 | disposition home or self-care (01) ==
LOC: DI.N 14:28
PROVIDERS: ATTEND Physician Assistant Surgical
DX: M85.872 Other specified disorders of bone density and structure, left ankle and foot (principal); Z98.1 Arthrodesis status